=== PATIENT | female | born 1940 | race Caucasian/White ===

== ENCOUNTER 2018-01-01 12:16 | Inpatient (IN) ==
[2018-01-01 13:56] LABS: Baso % (Auto) 0.2 % (0.0-2.0); Hematocrit 39.9 % (35.0-46.0); Hemoglobin 12.9 gm/dL (11.6-15.3); Lymph # (Auto) 1.5 th/mm3 (1.0-4.8); Lymph % (Auto) 7.5 % (9.0-44.0); Mean Corpuscular HGB Conc 32.4 % (32.0-36.0); Mean Corpuscular Hemoglobin 29.4 pg (27.0-34.0); Mean Corpuscular Volume 90.8 fL (80.0-100.0); Mean Platelet Volume 8.5 fL (7.0-11.0); Mono # (Auto) 1.5 th/mm3 (0.0-0.9); Mono % (Auto) 7.7 % (0.0-8.0); Neut # (Auto) 16.4 th/mm3 (1.8-7.7); Neut % (Auto) 84.6 % (16.0-70.0); Platelet Count 237 th/mm3 (150-450); Red Cell Distribution Width 14.4 % (11.6-17.2); White Blood Count 19.4 th/mm3 (4.0-11.0)
[2018-01-01 14:03] LABS: Activated Partial Thrombo Time 28.9 sec (24.3-30.1); INR 1.1 Ratio; Prothrombin Time 10.7 sec (9.8-11.6)
[2018-01-01 14:20] LABS: Anion Gap 5 meq/L (5-15); Blood Urea Nitrogen 18 mg/dL (7-18); Calcium 8.6 mg/dL (8.5-10.1); Carbon Dioxide 27.7 meq/L (21.0-32.0); Chloride 104 meq/L (98-107); Glomerular Filtration Rate 22 mL/min (>89); Glucose,Random 98 mg/dL (74-106); Potassium 4.4 meq/L (3.5-5.1); Sodium 137 meq/L (136-145)
--- NOTE | 2018-01-01 14:22 | XR ---
EXAM DATE: 01/01/2018 1:37 PM EDT AGE/SEX: 77 years / Female INDICATIONS: . Chest pain today. CLINICAL DATA: This is the patient's initial encounter. Patient reports that signs and symptoms have been present for 2 days and indicates a pain score of 7/10. MEDICAL/SURGICAL HISTORY: Hypertension. Congestive heart failure. None. COMPARISON: No prior exams available for comparison. FINDINGS: There is some mild nonspecific infiltrates in both lung bases. The upper lung leo are grossly rock r. No definite pleural effusions or pulmonary edema. The heart size is within normal limits. The bony structures are grossly intact. There are no prior studies for comparison. CONCLUSION: Mild nonspecific infiltrates in both lung bases, right greater than left. Bibasilar pneumonia would b e a consideration. Electronically signed by: Liam Washburn MD 01/01/2018 2:20 PM EDT
[2018-01-01 14:35] LABS: Lymphocytes 8 % (9-44); Monocytes 8 % (0-8); Platelet Estimate Normal (Normal); Platelet Morphology Normal (Normal)
[2018-01-01 14:36] LABS: Toxic Vacuolation Present
--- NOTE | 2018-01-01 14:46 | ED ---
HPI General Chief Complaint: Chest Pain Stated Complaint: Chest Pain Time Seen by Provider: 01/01/18 13:10 Source: patient Mode of arrival: EMS Limitations: no limitations History of Present Illness HPI narrative: 77-year-old female with COPD, hypercholesterolemia, hypertension presented with complaint of left-sided chest pain since yesterday. Describes a pleuritic 8 out of 10. She still smokes. Has COPD. MD complaint: chest pain Complete Quality Measures for STEMI Alert Patients STEMI Alert: No Duration: intermittent Quality: tightness Pain radiation: none Relieving factors: nothing Exacerbating factors: inspiration Context: recent illness Associated symptoms: cough (Productive) Treatments prior to arrival chest pain: aspirin Related Data On Oral Contraceptives: No Home Medications Medication Instructions Recorded Confirmed albuterol sulfate [Ventolin HFA] 2 puff INHALATION Q6H PRN 01/01/18 01/01/18 duloxetine 30 mg PO DAILY 01/01/18 01/01/18 hydralazine 25 mg PO TID 01/01/18 01/01/18 hydrocodone-acetaminophen [[place]] 1 tab PO Q6H PRN 01/01/18 01/01/18 meloxicam 7.5 mg PO DAILY 01/01/18 01/01/18 oxybutynin chloride 2.5 mg PO BID 01/01/18 01/01/18 quetiapine 25 mg PO DAILY 01/01/18 01/01/18 temazepam 15 mg PO HS 01/01/18 01/01/18 Previous Rx's Medication Instructions Recorded budesonide-formoterol [Symbicort] 2 puff INHALATION Q12H 30 Days g 01/03/18 levofloxacin 750 mg PO EVERY OTHER DAY #3 tab 01/03/18 prednisone 20 mg PO BID #8 tab 01/03/18 Allergies Allergy/AdvReac Type Severity Reaction Status Date / Time Iodinated Contrast- Oral and Allergy Agitation Verified 01/01/18 13:19 IV Dye [Contrast] Review of Systems Constitutional Denies fever(s) Eyes Denies change in vision ENT Denies headache(s) and Denies nasal congestion Cardiovascular Reports chest pain, Reports chest pain at rest, Denies chest pain with activity , Denies syncope, Denies pedal edema and Denies palpitations Respiratory Reports chest congestion, Reports cough, Reports excessive phlegm production and Reports dyspnea Gastrointestinal Denies abdominal pain Genitourinary Denies difficulty voiding Musculoskeletal Denies myalgias Integumentary/Breasts Denies rash Neurologic Denies headache(s) Psychiatric Denies depression Endocrine Denies polyuria Hematologic/Lymphatic Denies easy bruising PMFSH Medical History Medical History COPD (chronic obstructive pulmonary disease) (Acute) High cholesterol (Acute) History of hysterectomy (Acute) Hypertension (Acute) Surgical History Surgical History History of laminectomy (Acute) Social History Social History Substance History: No History of Abuse Second Hand Smoke Exposure: No Smoking Status: Current every day smoker Tobacco Type: Cigarettes Packs Per Day: 0.5 Cigarettes Per Day: 10.0 How Often Do You Have a Drink Containing Alcohol: Never Recent Travel in [facility] within the Last 8 Weeks: No Recent Out of Country Travel within the Last 8 Weeks: No Immunization History Tetanus Immunization: Unsure Exam HENNH Head: normocephalic and atraumatic Nose: no nasal discharge and no epistaxis Mouth: moist mucous membranes Eyes Sclera: normal sclerae Pupils: PERRL Neck Neck: trachea midline and no JVD Resp Effort & Inspection: normal respiratory effort and no use of accessory muscles Auscultation: clear to auscultation bilaterally Other: Diminished sounds bilaterally. No crackles. No wheezing. Cardio Rate: regular rate Rhythm: regular rhythm Heart Sounds: no murmurs GI Inspection: non-distended Palpation: soft, no hepatosplenomegaly and nontender Skin General: dry skin (warm) Neuro General: alert and awake Cranial Nerves: other Speech: speech normal Motor: no movement abnormalities noted Extrem General: normal to inspection, no clubbing, no cyanosis and no edema Psych Mood: congruent mood Affect: normal affect Judgment: judgment good Course Reevaluation(s) Reevaluation #1: Patient resting comfortably in no distress. Antibiotics started. Cultures obtained. Hemodynamically stable. Time: 15:00 Initial Documented Vital Signs Temperature 98.4 F 01/01/18 12:31 Pulse Rate 95 H 01/01/18 12:31 Respiratory Rate 20 01/01/18 12:31 Blood Pressure 173/74 H 01/01/18 12:31 Pulse Oximetry 97 01/01/18 12:31 Last Documented Vital Signs Temperature 98.4 F 01/03/18 12:00 Pulse Rate 83 01/03/18 14:08 Respiratory Rate 12 01/03/18 14:08 Blood Pressure 141/62 H 01/03/18 12:00 Pulse Oximetry 85 L 01/03/18 14:08 Medical Decision Making MDM Narrative Medical decision making narrative: Patient with COPD exacerbation likely secondary to pneumonia. Lactic acid elevated fall meeting sepsis criteria. She was started on ceftriaxone and azithromycin. Hemodynamically stable. Lab Data Lab results reviewed: Yes I reviewed the patient's lab results. Result diagrams: 01/02/18 05:18 01/02/18 05:18 Lab Results 01/01/18 01/01/18 01/01/18 Range/Units 13:30 13:30 13:30 WBC 19.4 H (4.0-11.0) th/mm3 RBC 4.40 (4.00-5.30) mil/mm3 Hgb 12.9 (11.6-15.3) gm/dL Hct 39.9 (35.0-46.0) % MCV 90.8 (80.0-100.0) fL MCH 29.4 (27.0-34.0) pg MCHC 32.4 (32.0-36.0) % RDW 14.4 (11.6-17.2) % Plt Count 237 (150-450) th/mm3 MPV 8.5 (7.0-11.0) fL Prelim Diff (Auto) Slide review pending Neut % (Auto) 84.6 H (16.0-70.0) % Lymph % (Auto) 7.5 L (9.0-44.0) % [place] % (Auto) 7.7 (0.0-8.0) % Eos % (Auto) 0.0 (0.0-4.0) % Baso % (Auto) 0.2 (0.0-2.0) % Neut # (Auto) 16.4 H (1.8-7.7) th/mm3 Lymph # (Auto) 1.5 (1.0-4.8) th/mm3 [place] # (Auto) 1.5 H (0.0-0.9) th/mm3 Eos # (Auto) 0.0 (0.0-0.4) th/mm3 Baso # (Auto) 0.0 (0.0-0.2) th/mm3 WBC Differential Manual diff final Seg Neuts % (Manual) 74 H (16-70) % Band Neuts % (Manual) 10 H (0-6) % Lymphocytes % (Manual) 8 L (9-44) % Monocytes % (Manual) 8 (0-8) % Abs Neuts (Manual) 16.3 H (1.8-7.7) th/mm3 Differential Comment . Toxic Vacuolation Present H (None) Platelet Estimate Normal (Normal) Platelet Morphology Normal (Normal) PT 10.7 (9.8-11.6) sec INR 1.1 Ratio APTT 28.9 (24.3-30.1) sec Sodium 137 (136-145) meq/L Potassium 4.4 (3.5-5.1) meq/L Chloride 104 (98-107) meq/L Carbon Dioxide 27.7 (21.0-32.0) meq/L Anion Gap 5 (5-15) meq/L BUN 18 (7-18) mg/dL Creatinine 2.13 H (0.50-1.00) mg/dL Estimated GFR 22 L (>89) mL/min Random Glucose 98 (74-106) mg/dL Lactic Acid (0.4-2.0) mmol/L Calcium 8.6 (8.5-10.1) mg/dL Troponin I Less than 0.02 L (0.02-0.05) ng/mL 01/01/18 01/01/18 01/02/18 Range/Units 15:35 23:22 05:18 WBC 10.5 (4.0-11.0) th/mm3 RBC 3.96 L (4.00-5.30) mil/mm3 Hgb 11.8 (11.6-15.3) gm/dL Hct 36.1 (35.0-46.0) % MCV 91.4 (80.0-100.0) fL MCH 29.8 (27.0-34.0) pg MCHC 32.6 (32.0-36.0) % RDW 14.7 (11.6-17.2) % Plt Count 188 (150-450) th/mm3 MPV 8.3 (7.0-11.0) fL Prelim Diff (Auto) Neut % (Auto) 74.0 H (16.0-70.0) % Lymph % (Auto) 15.7 (9.0-44.0) % [place] % (Auto) 9.1 H (0.0-8.0) % Eos % (Auto) 0.9 (0.0-4.0) % Baso % (Auto) 0.3 (0.0-2.0) % Neut # (Auto) 7.8 H (1.8-7.7) th/mm3 Lymph # (Auto) 1.6 (1.0-4.8) th/mm3 [place] # (Auto) 1.0 H (0.0-0.9) th/mm3 Eos # (Auto) 0.1 (0.0-0.4) th/mm3 Baso # (Auto) 0.0 (0.0-0.2) th/mm3 WBC Differential . Seg Neuts % (Manual) (16-70) % Band Neuts % (Manual) (0-6) % Lymphocytes % (Manual) (9-44) % Monocytes % (Manual) (0-8) % Abs Neuts (Manual) (1.8-7.7) th/mm3 Differential Comment Auto diff final Toxic Vacuolation (None) Platelet Estimate (Normal) Platelet Morphology (Normal) PT (9.8-11.6) sec INR Ratio APTT (24.3-30.1) sec Sodium (136-145) meq/L Potassium (3.5-5.1) meq/L Chloride (98-107) meq/L Carbon Dioxide (21.0-32.0) meq/L Anion Gap (5-15) meq/L BUN (7-18) mg/dL Creatinine (0.50-1.00) mg/dL Estimated GFR (>89) mL/min Random Glucose (74-106) mg/dL Lactic Acid 0.9 (0.4-2.0) mmol/L Calcium (8.5-10.1) mg/dL Troponin I Less than 0.02 L (0.02-0.05) ng/mL 01/02/18 Range/Units 05:18 WBC (4.0-11.0) th/mm3 RBC (4.00-5.30) mil/mm3 Hgb (11.6-15.3) gm/dL Hct (35.0-46.0) % MCV (80.0-100.0) fL MCH (27.0-34.0) pg MCHC (32.0-36.0) % RDW (11.6-17.2) % Plt Count (150-450) th/mm3 MPV (7.0-11.0) fL Prelim Diff (Auto) Neut % (Auto) (16.0-70.0) % Lymph % (Auto) (9.0-44.0) % [place] % (Auto) (0.0-8.0) % Eos % (Auto) (0.0-4.0) % Baso % (Auto) (0.0-2.0) % Neut # (Auto) (1.8-7.7) th/mm3 Lymph # (Auto) (1.0-4.8) th/mm3 [place] # (Auto) (0.0-0.9) th/mm3 Eos # (Auto) (0.0-0.4) th/mm3 Baso # (Auto) (0.0-0.2) th/mm3 WBC Differential Seg Neuts % (Manual) (16-70) % Band Neuts % (Manual) (0-6) % Lymphocytes % (Manual) (9-44) % Monocytes % (Manual) (0-8) % Abs Neuts (Manual) (1.8-7.7) th/mm3 Differential Comment Toxic Vacuolation (None) Platelet Estimate (Normal) Platelet Morphology (Normal) PT (9.8-11.6) sec INR Ratio APTT (24.3-30.1) sec Sodium 141 (136-145) meq/L Potassium 4.5 (3.5-5.1) meq/L Chloride 108 H (98-107) meq/L Carbon Dioxide 23.2 (21.0-32.0) meq/L Anion Gap 10 (5-15) meq/L BUN 21 H (7-18) mg/dL Creatinine 2.05 H (0.50-1.00) mg/dL Estimated GFR 23 L (>89) mL/min Random Glucose 72 L (74-106) mg/dL Lactic Acid (0.4-2.0) mmol/L Calcium 8.1 L (8.5-10.1) mg/dL Troponin I (0.02-0.05) ng/mL Imaging Data Radiologist's impression: Chest X-Ray 01/01/18 13:21 CONCLUSION: Mild nonspecific infiltrates in both lung bases, right greater than left. Bibasilar pneumonia would be a consideration. ECG Data Attestation: I personally reviewed and interpreted this ECG as follows: Prior ECG tracings: available for review Interpretation: EKG obtained at 12:31 PM revealed sinus rhythm 89 bpm MS 122 ms normal QTC nonspecific ST-T wave abnormalities. Normal axis. No signs of acute ischemia. No STEMI Discharge Plan Discharge Disposition Patient Disposition: 01 Discharge Home Discharge Condition Condition: Good Discharge Order Discharge Orders: Discharge Order (Routine); Ordered 01/03/18 Ordered By: Bc Ervin Discharge Details Anticipated Discharge Date: 01/03/18 Diagnosis: Bilateral pneumonia, COPD exacerbation Physicians Team ED Provider: David Olvera Primary Care Provider: UNKNOWN, Attending Provider: Bc Ervin Discharge Interventions Interventions: ED Discharge Assessment Last Done: 01/01/18 19:06 Status ED Status: Left Department Discharge Information Discharge Date/Time: 01/01/18 19:06
[2018-01-01] MEDS ORDERED: Azithromycin Inj 500 MG in Sodium Chlor 0.9% Inj 250 ML IV.SIG ONE (14:59)
[2018-01-01] MEDS ORDERED: Bisacodyl 10 MG Supp RECTAL PRN (15:42)
[2018-01-01] MEDS ORDERED: Naloxone Inj 0.4 MG/ML Vial IV.PUSH PRN (15:57)
[2018-01-01] MEDS ORDERED: Acetaminophen 325 MG Tablet PO PRN (15:57)
[2018-01-01] MEDS ORDERED: guaiFENesin/Dextromethorphan 200 MG/20 MG 10 ML UDC PO PRN (15:58)
--- NOTE | 2018-01-01 16:01 | P.HPIM ---
History of Present Illness Primary Care Physician: UNKNOWN Chief Complaint: Chills and fever and chest pain History of Present Illness: 77-year-old white female with a history of hypertension, hyperlipidemia presents to the emergency room with a 5 day history of worsening symptoms of shortness of breath with physical exertion, left-sided pleuritic chest pain along with chills of fever and was brought to the emergency room by her sister. She describes a productive cough with yellowish phlegm. She also continues to smoke half a pack of cigarettes on a daily basis. She describes the pain as a 7 out of 10 in pain intensity and describes as a sharp stabbing pain left- sided with no radiation. She also has had poor appetite but no symptoms of nausea or vomiting. She denies any associated diarrhea. She denies any associated abdominal pain. She states her baseline is walking with a cane or a walker but her sister states that she has been less active during the past few days due to the symptoms. Inpatient Certification: I certify that the inpatient services were ordered in accordance with Medicare regulations governing the order. This includes certification that hospital inpatient services are reasonable and necessary and in the case of services not specified as inpatient-only under 42 CFR 419.22(n), that they are appropriately provided as inpatient services in accordance to with the 2-midnight benchmark under 43 CFR 412.3(e) Estimated Total Length of Stay (Days): 3 Plans for Post Hospital Care: Home health Review of Systems All other systems reviewed negative except as stated [facility] - History History Provided By: Patient - Medical History Medical History: Medical History (Last Updated 01/01/18 @ 15:51 by Elodia Weinstein MD) COPD (chronic obstructive pulmonary disease) High cholesterol History of hysterectomy Hypertension - Surgical History Surgical History: Surgical History (Last Reviewed 01/01/18 @ 15:50 by Elodia Weinstein MD) History of laminectomy - Tobacco History Second Hand Smoke Exposure: No Tobacco Use In Past 30 Days: Yes Smoking Status: Current every day smoker Tobacco Type: Cigarettes Packs Per Day: 0.5 - Alcohol History How Often Do You Have a Drink Containing Alcohol: Never - Substance Use History Substance History: No History of Abuse - Travel History Recent Travel in the [place] Within the Last 8 Weeks: No Recent Travel Out of the Country Within the Last 8 Weeks: No - Immunization History Tetanus Immunization: Unsure Medications and Allergies Active Medications: Active Medications Al Hydroxide/Mg Hydroxide (Milk Of Magnesia Liq) 30 ml PO Q12H PRN PRN Reason: Mild Constipation Bisacodyl (Dulcolax Supp) 10 mg RECTAL DAILY PRN PRN Reason: SEVERE CONSITIPATION Heparin Sodium (Porcine) (Heparin Inj) 5,000 units SQ Q12H CHANTEL Azithromycin 500 mg/ Sodium (Chloride) 250 mls @ 250 mls/hr IV.SIG ONCE ONE Stop: 01/01/18 15:58 Ceftriaxone Sodium 2,000 mg/ (Sodium Chloride) 100 mls @ 200 mls/hr IV.SIG Q24H CHANTEL Azithromycin 500 mg/ Sodium (Chloride) 250 mls @ 250 mls/hr IV.SIG Q24H CHANTEL Lactulose (Lactulose Liq) 30 ml PO DAILY PRN PRN Reason: SEVERE CONSITIPATION Ondansetron HCl (Zofran Inj) 4 mg IV.PUSH Q6H PRN PRN Reason: NAUSEA OR VOMITING Sennosides (Senokot) 17.2 mg PO Q12H PRN PRN Reason: Moderate Constipation Sodium Chloride (Ns Flush) 2 ml IV.FLUSH UNSCH PRN PRN Reason: FLUSH AFTER USING IV ACCESS Sodium Chloride (Ns Flush) 2 ml IV.FLUSH UNSCH PRN PRN Reason: FLUSH AFTER USING IV ACCESS Allergies Allergy/AdvReac Type Severity Reaction Status Date / Time Iodinated Contrast- Oral and Allergy Agitation Verified 01/01/18 13:19 IV Dye [Contrast] Home Medications Medication Instructions Recorded Confirmed Type albuterol sulfate [Ventolin HFA] 2 puff INHALATION Q6H PRN 01/01/18 01/01/18 History duloxetine 30 mg PO DAILY 01/01/18 01/01/18 History hydralazine 25 mg PO TID 01/01/18 01/01/18 History hydrocodone-acetaminophen [[place]] 1 tab PO Q6H PRN 01/01/18 01/01/18 History meloxicam 7.5 mg PO DAILY 01/01/18 01/01/18 History oxybutynin chloride 2.5 mg PO BID 01/01/18 01/01/18 History quetiapine 25 mg PO DAILY 01/01/18 01/01/18 History temazepam 15 mg PO HS 07/18/18 07/18/18 History Exam Vital signs: Vital Signs 01/01/18 12:31 Temperature 98.4 F Pulse Rate 95 H Respiratory Rate 20 Blood Pressure 173/74 H Pulse Oximetry 97 Intake & Output 12/31/17 01/01/18 01/01/18 18:59 06:59 18:59 Weight 52.163 kg Narrative: GENERAL: Thin, well-developed white female laying in bed in no acute respiratory distress however the ill-appearing SKIN: Warm and dry. HEAD: Atraumatic. Normocephalic. EYES: Pupils equal and round. No scleral icterus. No injection or drainage. ENT: No nasal bleeding or discharge. Mucous membranes pink and moist. Oropharynx showed no erythema NECK: Trachea midline. No JVD. CARDIOVASCULAR: Regular rate and rhythm. RESPIRATORY: Diminished breath sounds in the left basilar area GASTROINTESTINAL: Abdomen soft, non-tender, nondistended. Hepatic and splenic margins not palpable. Normoactive bowel sounds MUSCULOSKELETAL: Extremities without clubbing, cyanosis, or edema. No obvious deformities. NEUROLOGICAL: Awake and alert to person place and time. No obvious cranial nerve deficits. Motor grossly within normal limits. Five out of 5 muscle strength in the arms and legs. Normal speech. PSYCHIATRIC: Appropriate mood and affect; insight and judgment normal. Results - Labs CBC & Chem 7: 01/02/18 05:18 01/02/18 05:18 Labs: Short CBC 01/01/18 Range/Units 13:30 WBC 19.4 H (4.0-11.0) th/mm3 Hgb 12.9 (11.6-15.3) gm/dL Hct 39.9 (35.0-46.0) % Plt Count 237 (150-450) th/mm3 BMP 01/01/18 13:30 Sodium 137 Potassium 4.4 Chloride 104 Carbon Dioxide 27.7 BUN 18 Creatinine 2.13 H Calcium 8.6 Cardiac Enzymes 01/01/18 Range/Units 13:30 Troponin I Less than 0.02 L (0.02-0.05) ng/mL - Imaging Impressions Chest X-Ray 01/01/18 13:21 CONCLUSION: Mild nonspecific infiltrates in both lung bases, right greater than left. Bibasilar pneumonia would be a consideration. Caprini VTE Risk Assessment Caprini VTE Risk Assessment: Moderate/High Risk (score >= 2) Caprini Risk Assessment Model: Point Value = 1 Point Value = 2 Point Value = 3 Point Value = 5 Age 41-60 Minor surgery BMI > 25 kg/m2 Swollen legs Varicose veins or History of unexplained or recurrent spontaneous Oral contraceptives or hormone replacement Sepsis (< 1 month) Serious lung disease, including pneumonia (< 1 month) Abnormal pulmonary function Acute myocardial infarction Congestive heart failure (< 1 month) History of inflammatory bowel disease Medical patient at bed rest Age 61-74 Arthroscopic surgery Major open surgery (> 45 min) Laparoscopic surgery (> 45 min) Malignancy Confined to bed (> 72 hours) Immobilizing plaster cast Central venous access Age >= 75 History of VTE Family history of VTE Factor V Leiden Prothrombin [id number] Lupus anticoagulant Anticardiolipin antibodies Elevated serum homocysteine Heparin-induced thrombocytopenia Other congenital or acquired thrombophilia Stroke (< 1 month) Elective arthroplasty Hip, pelvis, or leg fracture Acute spinal cord injury (< 1 month) Prophylaxis Regimen: Total Risk Factor Score Risk Level Prophylaxis Regimen 0-1 Low Early ambulation 2 Moderate Order ONE of the following: *Sequential Compression Device (SCD) *Heparin 5000 units SQ BID 3-4 Higher Order ONE of the following medications: *Heparin 5000 units SQ TID *Enoxaparin/Lovenox 40 mg SQ daily (WT < 150 kg, CrCl > 30 mL/min) *Enoxaparin/Lovenox 30 mg SQ daily (WT < 150 kg, CrCl > 10-29 mL/min) *Enoxaparin/Lovenox 30 mg SQ BID (WT < 150 kg, CrCl > 30 mL/min) AND/OR *Sequential Compression Device (SCD) 5 or more Highest Order ONE of the following medications: *Heparin 5000 units SQ TID (Preferred with Epidurals) *Enoxaparin/Lovenox 40 mg SQ daily (WT < 150 kg, CrCl > 30 mL/min) *Enoxaparin/Lovenox 30 mg SQ daily (WT < 150 kg, CrCl > 10-29 mL/min) *Enoxaparin/Lovenox 30 mg SQ BID (WT < 150 kg, CrCl > 30 mL/min) AND *Sequential Compression Device (SCD) Assessment and Plan - Plan 77-year-old white female with a history COPD, hypertension, hyperlipidemia current smoker with 1. Sepsis on admission due to leukocytosis and tachycardia with source of community-acquired pneumoniacontinue with IV ceftriaxone, azithromycin, oxygen for support as needed. Follow-up with lactic acid levels and blood cultures. 2. COPD with mild exacerbationcontinue with DuoNeb treatments. Oxygen support as needed. 3. Hypertensionresume home hydralazine 4. Tobacco usecessation counseling provided. 5. Acute kidney injury possibly superimposed on chronic kidney disease stage IIIwill continue monitor with IV fluid hydration and supportive care 6. DVT prophylaxis heparin subcu
[2018-01-01] MEDS: Heparin - SQ 10,000 UNITS/ML Vial SQ SCH (16:21)
[2018-01-01] MEDS: Sod Chloride 0.9% Inj 1,000 ML IV.CONT SCH (17:12)
[2018-01-02 06:55] LABS: Baso % (Auto) 0.3 % (0.0-2.0); Eos # (Auto) 0.1 th/mm3 (0.0-0.4); Eos % (Auto) 0.9 % (0.0-4.0); Hematocrit 36.1 % (35.0-46.0); Hemoglobin 11.8 gm/dL (11.6-15.3); Lymph # (Auto) 1.6 th/mm3 (1.0-4.8); Lymph % (Auto) 15.7 % (9.0-44.0); Mean Corpuscular HGB Conc 32.6 % (32.0-36.0); Mean Corpuscular Hemoglobin 29.8 pg (27.0-34.0); Mean Corpuscular Volume 91.4 fL (80.0-100.0); Mean Platelet Volume 8.3 fL (7.0-11.0); Mono % (Auto) 9.1 % (0.0-8.0); Neut # (Auto) 7.8 th/mm3 (1.8-7.7); Platelet Count 188 th/mm3 (150-450); Red Blood Count 3.96 mil/mm3 (4.00-5.30); Red Cell Distribution Width 14.7 % (11.6-17.2); White Blood Count 10.5 th/mm3 (4.0-11.0)
[2018-01-02 07:05] LABS: Calcium 8.1 mg/dL (8.5-10.1); Carbon Dioxide 23.2 meq/L (21.0-32.0); Potassium 4.5 meq/L (3.5-5.1)
[2018-01-02] MEDS: Heparin - SQ 10,000 UNITS/ML Vial SQ SCH ×2 (07:50→17:24)
[2018-01-02] MEDS: Sod Chloride 0.9% Inj 1,000 ML IV.CONT SCH ×2 (07:51→20:52)
[2018-01-02] MEDS ORDERED: predniSONE 20 MG Tablet PO ONE (10:42)
--- NOTE | 2018-01-02 10:48 | P.PN ---
Subjective Interval history: Follow-up for pneumonia, COPD exacerbation. Patient is currently doing well. On room air. No fever or chills. Physical Exam Vital signs: Vital Signs 01/01/18 12:31 01/01/18 15:48 01/01/18 18:20 Temperature 98.4 F Pulse Rate 95 H 80 Respiratory Rate 20 18 18 Blood Pressure 173/74 H 141/63 H Pulse Oximetry 97 01/01/18 19:52 01/01/18 19:53 01/01/18 20:00 Temperature 99.6 F Pulse Rate 89 92 H Respiratory Rate 18 17 Blood Pressure 108/55 L Pulse Oximetry 98 98 01/02/18 00:00 01/02/18 04:00 01/02/18 08:00 Temperature 99.1 F 98.4 F 99.2 F Pulse Rate 75 82 83 Respiratory Rate 17 17 20 Blood Pressure 92/55 L 104/51 L 101/53 L Pulse Oximetry 98 98 98 01/02/18 08:58 01/02/18 09:02 01/02/18 10:06 Temperature Pulse Rate 110 H 86 Respiratory Rate 15 Blood Pressure Pulse Oximetry 96 Intake & Output 01/01/18 01/02/18 01/02/18 18:59 06:59 18:59 Output Total Balance - Weight 52.163 kg 53.1 kg Output: Urine Other: # Voids 1 Narrative: GENERAL: Alert, NAD. SKIN: Warm and dry. HEAD: Normocephalic. EYES: No scleral icterus. No injection or drainage. NECK: Supple, trachea midline. No JVD or lymphadenopathy. CARDIOVASCULAR: Regular rate and rhythm without murmurs, gallops, or rubs. RESPIRATORY: Moderate air entry, no appreciable wheezing. Mild crackles on the left lower lung field. No accessory muscle use. GASTROINTESTINAL: Abdomen soft, non-tender, nondistended. MUSCULOSKELETAL: No cyanosis, or edema. BACK: Nontender without obvious deformity. No CVA tenderness. Results - Labs CBC & Chem 7: 01/02/18 05:18 01/02/18 05:18 Laboratory Results - last 24 hr 01/01/18 01/01/18 01/01/18 13:30 13:30 13:30 WBC 19.4 H RBC 4.40 Hgb 12.9 Hct 39.9 MCV 90.8 MCH 29.4 MCHC 32.4 RDW 14.4 Plt Count 237 MPV 8.5 Prelim Diff (Auto) Slide review pending Neut % (Auto) 84.6 H Lymph % (Auto) 7.5 L [place] % (Auto) 7.7 Eos % (Auto) 0.0 Baso % (Auto) 0.2 Neut # (Auto) 16.4 H Lymph # (Auto) 1.5 [place] # (Auto) 1.5 H Eos # (Auto) 0.0 Baso # (Auto) 0.0 WBC Differential Manual diff final Seg Neuts % (Manual) 74 H Band Neuts % (Manual) 10 H Lymphocytes % (Manual) 8 L Monocytes % (Manual) 8 Abs Neuts (Manual) 16.3 H Differential Comment . Toxic Vacuolation Present H Platelet Estimate Normal Platelet Morphology Normal PT 10.7 INR 1.1 APTT 28.9 Sodium 137 Potassium 4.4 Chloride 104 Carbon Dioxide 27.7 Anion Gap 5 BUN 18 Creatinine 2.13 H Estimated GFR 22 L Random Glucose 98 Lactic Acid Calcium 8.6 Troponin I Less than 0.02 L 01/01/18 01/01/18 01/02/18 15:35 23:22 05:18 WBC 10.5 RBC 3.96 L Hgb 11.8 Hct 36.1 MCV 91.4 MCH 29.8 MCHC 32.6 RDW 14.7 Plt Count 188 MPV 8.3 Prelim Diff (Auto) Neut % (Auto) 74.0 H Lymph % (Auto) 15.7 [place] % (Auto) 9.1 H Eos % (Auto) 0.9 Baso % (Auto) 0.3 Neut # (Auto) 7.8 H Lymph # (Auto) 1.6 [place] # (Auto) 1.0 H Eos # (Auto) 0.1 Baso # (Auto) 0.0 WBC Differential . Seg Neuts % (Manual) Band Neuts % (Manual) Lymphocytes % (Manual) Monocytes % (Manual) Abs Neuts (Manual) Differential Comment Auto diff final Toxic Vacuolation Platelet Estimate Platelet Morphology PT INR APTT Sodium Potassium Chloride Carbon Dioxide Anion Gap BUN Creatinine Estimated GFR Random Glucose Lactic Acid 0.9 Calcium Troponin I Less than 0.02 L 01/02/18 05:18 WBC RBC Hgb Hct MCV MCH MCHC RDW Plt Count MPV Prelim Diff (Auto) Neut % (Auto) Lymph % (Auto) [place] % (Auto) Eos % (Auto) Baso % (Auto) Neut # (Auto) Lymph # (Auto) [place] # (Auto) Eos # (Auto) Baso # (Auto) WBC Differential Seg Neuts % (Manual) Band Neuts % (Manual) Lymphocytes % (Manual) Monocytes % (Manual) Abs Neuts (Manual) Differential Comment Toxic Vacuolation Platelet Estimate Platelet Morphology PT INR APTT Sodium 141 Potassium 4.5 Chloride 108 H Carbon Dioxide 23.2 Anion Gap 10 BUN 21 H Creatinine 2.05 H Estimated GFR 23 L Random Glucose 72 L Lactic Acid Calcium 8.1 L Troponin I - Imaging Impressions Chest X-Ray 01/01/18 13:21 CONCLUSION: Mild nonspecific infiltrates in both lung bases, right greater than left. Bibasilar pneumonia would be a consideration. Assessment and Plan - Assessment (1) Bilateral pneumonia Code(s): J18.9 - Pneumonia, unspecified organism Status: Acute (2) COPD exacerbation Code(s): J44.1 - Chronic obstructive pulmonary disease with (acute) exacerbation Status: Acute - Plan 77-year-old white female with a history COPD, hypertension, hyperlipidemia current smoker with Sepsis on admission due to leukocytosis and tachycardia with source of community -acquired pneumonia Community-acquired pneumonia COPD exacerbation continue with IV ceftriaxone, azithromycin, oxygen for support as needed. -Continue albuterol, DuoNeb. -We will start prednisone 20 mg twice daily for 5 days. Hypertensionresume home hydralazine 25 mg 3 times daily. Tobacco usecessation counseling provided. Acute kidney injury possibly superimposed on chronic kidney disease stage III will continue monitor with IV fluid hydration and supportive care Full code. Heparin subcutaneous.
[2018-01-02] MEDS: hydrALAZINE 25 MG Tablet PO SCH ×4 (11:36→17:31)
[2018-01-02] MEDS ORDERED: levoFLOXacin 750 MG Tablet PO SCH (17:00)
[2018-01-02] MEDS ORDERED: Azithromycin Inj 500 MG in Sodium Chlor 0.9% Inj 250 ML IV.SIG SCH (17:00)
--- NOTE | 2018-01-02 18:39 | ECG ---
Date Performed: 01/01/2018 Time Performed: 12:31:12 PTAGE: 77 years EKG: Sinus rhythm MODERATE VOLTAGE CRITERIA FOR LVH, CONSIDER NORMAL VARIANT NONSPECIFIC ST & T-WAVE ABNORMALITY BRITNEY MACARIO ECG NO PREVIOUS TRACING DOCTOR: Jose Mccarty Interpretating Date/Time 01/02/2018 18:37:34
[2018-01-02] MEDS: predniSONE 20 MG Tablet PO SCH (21:49)
[2018-01-03] MEDS: Heparin - SQ 10,000 UNITS/ML Vial SQ SCH ×2 (05:11→15:45)
[2018-01-03] MEDS: predniSONE 20 MG Tablet PO SCH (08:48)
[2018-01-03] MEDS: hydrALAZINE 25 MG Tablet PO SCH ×2 (08:49→15:44)
[2018-01-03] MEDS: Sod Chloride 0.9% Inj 1,000 ML IV.CONT SCH (08:49)
--- NOTE | 2018-01-03 10:08 | P.DCO ---
- Physical Therapy Order: Evaluate and treat, Improve ambulation, Strength and gait training - Home Health Nursing Order: Medical education, Signs/symptoms of disease process, Oxygen administration education, Medication education-adverse effect - Certification I have seen patient Lori Morillo on 01/03/18. My clinical findings support the need for the requested home health care services because: Limited mobility due to disease progression, Patient has SOB, Deconditioned with increased weakness, Need for psychosocial assistance, High risk of falls, Infection with risk of complications I certify that my clinical findings support that this patient is homebound because: Hx COPD - exertion dyspnea/weakness, Unsteady gait/balance, Non-ambulatory: confined to bed or chair, Unable to use public transportation
[2018-01-03] MEDS ORDERED: QUEtiapine 25 MG Tablet PO SCH (11:00)
[2018-01-03 13:48] VITALS: BP 141/62; TEMP 98.4
[2018-01-03 14:08] VITALS: PULSE 83; RESP 12
[2018-01-03 14:11] VITALS: O2SAT 85
--- NOTE | 2018-01-04 15:21 | P.DS ---
Date of admission: 01/01/18 15:29 Primary care physician: UNKNOWN Brief History from admission: 77-year-old white female with a history of hypertension, hyperlipidemia presents to the emergency room with a 5 day history of worsening symptoms of shortness of breath with physical exertion, left-sided pleuritic chest pain along with chills of fever and was brought to the emergency room by her sister. She describes a productive cough with yellowish phlegm. She also continues to smoke half a pack of cigarettes on a daily basis. She describes the pain as a 7 out of 10 in pain intensity and describes as a sharp stabbing pain left- sided with no radiation. She also has had poor appetite but no symptoms of nausea or vomiting. She denies any associated diarrhea. She denies any associated abdominal pain. She states her baseline is walking with a cane or a walker but her sister states that she has been less active during the past few days due to the symptoms. DS: Diagnosis - Discharge Diagnosis (1) Bilateral pneumonia Status: Acute (2) COPD exacerbation Status: Acute DS: Medications - Discharge Medications Prescriptions: budesonide-formoterol [Symbicort] 2 puff INHALATION Q12H 30 Days g levofloxacin 750 mg PO EVERY OTHER DAY #3 tab prednisone 20 mg PO BID #8 tab DS: Summary Hospital Course: 77-year-old white female with a history COPD, hypertension, hyperlipidemia current smoker with Sepsis on admission due to leukocytosis and tachycardia with source of community -acquired pneumonia Community-acquired pneumonia COPD exacerbation Initially received Ceftriaxone and Azithromycin and later switched to Levaquin. -Continue albuterol, DuoNeb. -prednisone 20 mg twice daily for 5 days. Hypertensionresume home hydralazine 25 mg 3 times daily. Tobacco usecessation counseling provided. Acute kidney injury possibly superimposed on chronic kidney disease stage III No acute concerns. Full code. Heparin subcutaneous. Overall, patient received abx, duoneb. Walk test indicated need for home O2 which was arranged. Patient was subsequently discharged home with home health. - Time Spent with Patient Total time spent providing and/or coordinating discharge services: Less than 30 minutes Exam Vital signs: Intake & Output 01/03/18 01/04/18 01/04/18 18:59 06:59 18:59 Other: Date of Last Bowel Movement 01/03/18 Results Procedures completed during hospitalization: None. Labs on day of discharge: Preliminary micro results at discharge 01/01/18 15:30 Aerobic Blood Culture - Preliminary Blood - Peripheral No growth in 3 days Anaerobic Blood Culture - Preliminary No growth in 3 days 01/01/18 15:35 Aerobic Blood Culture - Preliminary Blood - Peripheral No growth in 3 days Anaerobic Blood Culture - Preliminary No growth in 3 days - Impressions ITS Impressions Chest X-Ray 01/01/18 13:21 CONCLUSION: Mild nonspecific infiltrates in both lung bases, right greater than left. Bibasilar pneumonia would be a consideration. Discharge Plan - Discharge Disposition Patient Disposition: /Home Health Service - Discharge Condition Condition: Good - Discharge Order Discharge Orders: Discharge Order (Routine); Ordered 01/03/18 Ordered By: Bc Ervin - Discharge Details Anticipated Discharge Date: 01/03/18 - Physicians Team Primary Care Provider: UNKNOWN, Attending Provider: Bc Ervin
== END 2018-01-03 16:39 | disposition home health service (06) ==
LOC: EDBD → NEPC 12:16 → NEDA 15:29 → N05 19:06
PROVIDERS: ADMIT Hospitalist; ATTEND Hospitalist
DX: E78.5 Hyperlipidemia, unspecified; J18.9 Pneumonia, unspecified organism; F17.210 Nicotine dependence, cigarettes, uncomplicated; N18.3 Chronic kidney disease, stage 3 (moderate); I12.9 Hypertensive chronic kidney disease with stage 1 through stage 4 chronic kidney disease, or unspecified chronic kidney disease; J44.1 Chronic obstructive pulmonary disease with (acute) exacerbation; J44.0 Chronic obstructive pulmonary disease with (acute) lower respiratory infection; E78.00 Pure hypercholesterolemia, unspecified; A41.9 Sepsis, unspecified organism; N17.9 Acute kidney failure, unspecified

== ENCOUNTER 2018-01-22 13:58 | Inpatient (IN) ==
[2018-01-22] MEDS ORDERED: Sod Chloride 0.9% Inj 1,000 ML IV.SIG ONE (14:08)
[2018-01-22] MEDS ORDERED: Labetalol HCl Inj 100 MG/20 ML Vial IV.PUSH ONE ×2 (14:12→16:00)
--- NOTE | 2018-01-22 14:12 | ED ---
HPI General Chief complaint: Weakness Stated complaint: weakness Time Seen by Provider: 01/22/18 14:08 Source: patient Mode of arrival: EMS Limitations: no limitations History of Present Illness HPI Narrative: 77-year-old female with history of hypertension, hyperlipidemia, COPD with continuous tobacco use present emergency department via [facility] for evaluation of weakness and lethargy that has been worsening over the last couple of days. Patient states that she Skypes with her family on a daily basis and they have noticed that she has become more lethargic and weak. Currently, patient denies fever, chills, chest pain, shortness of breath, abdominal pain, leg pain. Patient does know what does not know why she feels weak. [facility] states that there may have been a left-sided facial droop but no other deficits. Blood glucose 109 with EV[facility]. Patient says she has been eating and drinking normally. She normally is independent, ambulates with a cane, and lives alone. She notes that she was diagnosed with pneumonia couple of weeks ago, completed a full course of antibiotics and was fine up until a couple days ago. Patient takes Lortab for chronic back pain. Related Data Home Medications Medication Instructions Recorded Confirmed albuterol sulfate [Ventolin HFA] 2 puff INHALATION Q6H PRN 01/01/18 01/22/18 duloxetine 30 mg PO DAILY 01/01/18 01/22/18 hydralazine 25 mg PO TID 01/01/18 01/22/18 hydrocodone-acetaminophen [[place]] 1 tab PO Q6H PRN 01/01/18 01/22/18 meloxicam 7.5 mg PO DAILY 01/01/18 01/22/18 oxybutynin chloride 2.5 mg PO BID 01/01/18 01/22/18 quetiapine 25 mg PO DAILY 01/01/18 01/22/18 temazepam 15 mg PO HS 01/01/18 01/22/18 budesonide-formoterol 2 puff INHALATION BID 01/22/18 01/22/18 furosemide [Lasix] 20 mg PO DAILY 01/22/18 01/22/18 levothyroxine [Synthroid] 50 mcg PO DAILY 01/22/18 01/22/18 pravastatin 20 mg PO DAILY 01/22/18 01/22/18 risperidone 1 mg PO DAILY 01/22/18 01/22/18 Previous Rx's Medication Instructions Recorded prednisone 20 mg PO BID #8 tab 01/03/18 Allergies Allergy/AdvReac Type Severity Reaction Status Date / Time Iodinated Contrast- Oral and Allergy Intermediate Itching Verified 01/22/18 14: 04 IV Dye [Contrast] Review of Systems ROS: all other systems reviewed are negative [facility] Family History Family History Other Hypothyroidism Social History Social History Substance History: No History of Abuse Second Hand Smoke Exposure: No Smoking Status: Heavy tobacco smoker Tobacco Type: Cigarettes Packs Per Day: 0.5 Cigarettes Per Day: 10.0 How Often Do You Have a Drink Containing Alcohol: Never Recent Travel in [facility] within the Last 8 Weeks: No Exam Narrative Exam Narrative: GENERAL: WD, WN in mild distress SKIN: Focused skin assessment warm/dry. HEAD: Atraumatic. Normocephalic. EYES: Pupils equal and round. No scleral icterus. No injection or drainage. EOMI ENT: No nasal bleeding or discharge. Mucous membranes pink and dry NECK: Trachea midline. No JVD. No lymphadenopathy CARDIOVASCULAR: Regular rate and rhythm. No murmur appreciated. RESPIRATORY: No accessory muscle use. Clear to auscultation. Breath sounds equal bilaterally. GASTROINTESTINAL: Abdomen soft, non-tender, nondistended. Hepatic and splenic margins not palpable. MUSCULOSKELETAL: No obvious deformities. No clubbing. No cyanosis. No edema. no TTP to calves NEUROLOGICAL: Awake and alert. Required Cranial nerves II through XII intact. Motor and sensory grossly within normal limits. Five out of 5 muscle strength in all muscle groups. Normal speech. PSYCHIATRIC: Appropriate mood and affect; insight and judgment normal. Course Initial Documented Vital Signs Temperature 98.0 F 01/22/18 14:05 Pulse Rate 82 01/22/18 14:05 Respiratory Rate 18 01/22/18 14:05 Blood Pressure 230/100 H 01/22/18 14:05 Pulse Oximetry 98 01/22/18 14:05 Last Documented Vital Signs Temperature 98.0 F 01/22/18 14:05 Pulse Rate 82 01/22/18 18:00 Respiratory Rate 16 01/22/18 16:21 Blood Pressure 184/80 H 01/22/18 18:00 Pulse Oximetry 98 01/22/18 15:30 Medical Decision Making JOCELYN Attestation JOCELYN supervised visit: Yes Attestation: I was present with the advanced practitioner during the management of this patient. I discussed the case with the advanced practitioner and agree with the findings and plan as documented in their note except as noted below. 77yF brought in by EMS for weakness and malaise. The patient was admitted to our institution from 01/02- for bilateral pneumonia and discharged home. She sats that she finished taking antibiotics several days ago, initially felt better, but over the past few days has felt "worn out" with generalized weakness / fatigue. Admits to chills but denies fever, denies chest pain or dyspnea, and says that her cough has resolved. Lives at home on her own, uses a cane/ walker to ambulate but reports difficulty even with these devices over the past 1-2 days. No acute distress NCAT RRR No wheezing or rhonchi, diminished breath sounds at bases bilaterally Abdomen soft and non-tender No lower extremity edema Oriented to person and place, answers questions slowly but appropriately, appears confused, moving all extremities, no slurred speech or aphasia A/P: 77yF presenting with weakness EKG and monitor Labs CXR CTH UA MDM Narrative Medical decision making narrative: 77y female with a history of COPD with continuous tobacco use, HTN. HLD presents to the ED via EV[facility] with weakness that has worsened over the last few days. Vitals demonstrate BP 230/100. Labetolol 10mg adminstered IV. Labs ordered to include sepsis workup as she was recently diagnosed and admitted for PNA. Pt given labetalol without significant improvement of BP. Unfortunately, IV hydralazine is not available. Will give p.o. hydralazine, Nitropaste 1", and additional 10 mg labetalol. Based off of the findings today, patient may have hypertensive encephalopathy versus significant dehydration. Kidney function appears stable. Cardiac enzymes negative. Potassium 5.3 but noted with slight hemolysis. TSH 3.000, Lactic 0.5, UA non contributory Head CT without acute process. Chest x-ray stable from January 01, 2018. I spoke with Dr. Fry who agrees to the admission. Differential Diagnosis Differential Diagnosis: CVA, ICH, sepsis, UTI, dehydration Medical Records Medical records reviewed: Yes I reviewed the patient's medical records. Lab Data Result diagrams: 01/22/18 14:20 01/22/18 14:20 Lab Results 01/22/18 01/22/18 01/22/18 Range/Units 14:12 14:20 14:20 WBC 5.9 (4.0-11.0) th/mm3 RBC 3.84 L (4.00-5.30) mil/mm3 Hgb 11.4 L (11.6-15.3) gm/dL Hct 35.8 (35.0-46.0) % MCV 93.3 (80.0-100.0) fL MCH 29.8 (27.0-34.0) pg MCHC 32.0 (32.0-36.0) % RDW 15.0 (11.6-17.2) % Plt Count 210 (150-450) th/mm3 MPV 8.5 (7.0-11.0) fL Neut % (Auto) 59.8 (16.0-70.0) % Lymph % (Auto) 28.5 (9.0-44.0) % [place] % (Auto) 9.2 H (0.0-8.0) % Eos % (Auto) 2.2 (0.0-4.0) % Baso % (Auto) 0.3 (0.0-2.0) % Neut # (Auto) 3.5 (1.8-7.7) th/mm3 Lymph # (Auto) 1.7 (1.0-4.8) th/mm3 [place] # (Auto) 0.5 (0.0-0.9) th/mm3 Eos # (Auto) 0.1 (0.0-0.4) th/mm3 Baso # (Auto) 0.0 (0.0-0.2) th/mm3 WBC Differential . Differential Comment Auto diff final PT 10.0 (9.8-11.6) sec INR 1.0 Ratio Sodium (136-145) meq/L Potassium (3.5-5.1) meq/L Chloride (98-107) meq/L Carbon Dioxide (21.0-32.0) meq/L Anion Gap (5-15) meq/L BUN (7-18) mg/dL Creatinine (0.50-1.00) mg/dL Estimated GFR (>89) mL/min POC Glucose 109 (68-110) mg/dl Random Glucose (74-106) mg/dL Lactic Acid (0.4-2.0) mmol/L Calcium (8.5-10.1) mg/dL Magnesium (1.5-2.5) mg/dL Total Bilirubin (0.2-1.0) mg/dL AST (15-37) U/L ALT (10-53) U/L Alkaline Phosphatase (45-117) U/L Lactate Dehydrogenase (84-246) U/L Total Creatine Kinase (26-192) U/L Troponin I (0.02-0.05) ng/mL Total Protein (6.4-8.2) g/dL Albumin (3.4-5.0) g/dL TSH (0.358-3.740) uIU/mL Urine Color (Yellw/Straw) Urine Clarity (Clear) Urine pH (5.0-8.5) Ur Specific [place] (1.002-1.035) Urine Protein (Neg-Trace) mg/dL Urine Glucose (UA) (Negative) mg/dL Urine Ketones (Negative) mg/dL Urine Occult Blood (Negative) Urine Nitrate (Negative) Urine Bilirubin (Negative) Urine Urobilinogen (Less than 2) mg/dL Ur Leukocyte Esterase (Negative) Urine RBC (0-3) /hpf Urine WBC (0-5) /hpf Ur Squamous Epith Cells (0-5) /hpf Urine Bacteria (None) /hpf Micro UA Comment Urine Culture Comments 01/22/18 01/22/18 01/22/18 Range/Units 14:20 14:20 14:20 WBC (4.0-11.0) th/mm3 RBC (4.00-5.30) mil/mm3 Hgb (11.6-15.3) gm/dL Hct (35.0-46.0) % MCV (80.0-100.0) fL MCH (27.0-34.0) pg MCHC (32.0-36.0) % RDW (11.6-17.2) % Plt Count (150-450) th/mm3 MPV (7.0-11.0) fL Neut % (Auto) (16.0-70.0) % Lymph % (Auto) (9.0-44.0) % [place] % (Auto) (0.0-8.0) % Eos % (Auto) (0.0-4.0) % Baso % (Auto) (0.0-2.0) % Neut # (Auto) (1.8-7.7) th/mm3 Lymph # (Auto) (1.0-4.8) th/mm3 [place] # (Auto) (0.0-0.9) th/mm3 Eos # (Auto) (0.0-0.4) th/mm3 Baso # (Auto) (0.0-0.2) th/mm3 WBC Differential Differential Comment PT (9.8-11.6) sec INR Ratio Sodium 143 (136-145) meq/L Potassium 5.3 H (3.5-5.1) meq/L Chloride 112 H (98-107) meq/L Carbon Dioxide 24.5 (21.0-32.0) meq/L Anion Gap 7 (5-15) meq/L BUN 20 H (7-18) mg/dL Creatinine 2.13 H (0.50-1.00) mg/dL Estimated GFR 22 L (>89) mL/min POC Glucose (68-110) mg/dl Random Glucose 102 (74-106) mg/dL Lactic Acid (0.4-2.0) mmol/L Calcium 8.1 L (8.5-10.1) mg/dL Magnesium 2.2 (1.5-2.5) mg/dL Total Bilirubin 0.3 (0.2-1.0) mg/dL AST 22 (15-37) U/L ALT 12 (10-53) U/L Alkaline Phosphatase 61 (45-117) U/L Lactate Dehydrogenase 271 H (84-246) U/L Total Creatine Kinase 68 (26-192) U/L Troponin I Less than 0.02 L (0.02-0.05) ng/mL Total Protein 6.3 L (6.4-8.2) g/dL Albumin 2.6 L (3.4-5.0) g/dL TSH 3.000 (0.358-3.740) uIU/mL Urine Color Yellow (Yellw/Straw) Urine Clarity Clear (Clear) Urine pH 6.0 (5.0-8.5) Ur Specific [place] 1.013 (1.002-1.035) Urine Protein 500 or greater (Neg-Trace) mg/dL Urine Glucose (UA) Negative (Negative) mg/dL Urine Ketones Negative (Negative) mg/dL Urine Occult Blood Negative (Negative) Urine Nitrate Negative (Negative) Urine Bilirubin Negative (Negative) Urine Urobilinogen Less than 2 (Less than 2) mg/dL Ur Leukocyte Esterase Negative (Negative) Urine RBC 1 (0-3) /hpf Urine WBC Less than 1 (0-5) /hpf Ur Squamous Epith Cells 1 (0-5) /hpf Urine Bacteria Rare H (None) /hpf Micro UA Comment Cath-culture ind Urine Culture Comments Cath-cult indicated 01/22/18 Range/Units 14:29 WBC (4.0-11.0) th/mm3 RBC (4.00-5.30) mil/mm3 Hgb (11.6-15.3) gm/dL Hct (35.0-46.0) % MCV (80.0-100.0) fL MCH (27.0-34.0) pg MCHC (32.0-36.0) % RDW (11.6-17.2) % Plt Count (150-450) th/mm3 MPV (7.0-11.0) fL Neut % (Auto) (16.0-70.0) % Lymph % (Auto) (9.0-44.0) % [place] % (Auto) (0.0-8.0) % Eos % (Auto) (0.0-4.0) % Baso % (Auto) (0.0-2.0) % Neut # (Auto) (1.8-7.7) th/mm3 Lymph # (Auto) (1.0-4.8) th/mm3 [place] # (Auto) (0.0-0.9) th/mm3 Eos # (Auto) (0.0-0.4) th/mm3 Baso # (Auto) (0.0-0.2) th/mm3 WBC Differential Differential Comment PT (9.8-11.6) sec INR Ratio Sodium (136-145) meq/L Potassium (3.5-5.1) meq/L Chloride (98-107) meq/L Carbon Dioxide (21.0-32.0) meq/L Anion Gap (5-15) meq/L BUN (7-18) mg/dL Creatinine (0.50-1.00) mg/dL Estimated GFR (>89) mL/min POC Glucose (68-110) mg/dl Random Glucose (74-106) mg/dL Lactic Acid 0.5 (0.4-2.0) mmol/L Calcium (8.5-10.1) mg/dL Magnesium (1.5-2.5) mg/dL Total Bilirubin (0.2-1.0) mg/dL AST (15-37) U/L ALT (10-53) U/L Alkaline Phosphatase (45-117) U/L Lactate Dehydrogenase (84-246) U/L Total Creatine Kinase (26-192) U/L Troponin I (0.02-0.05) ng/mL Total Protein (6.4-8.2) g/dL Albumin (3.4-5.0) g/dL TSH (0.358-3.740) uIU/mL Urine Color (Yellw/Straw) Urine Clarity (Clear) Urine pH (5.0-8.5) Ur Specific [place] (1.002-1.035) Urine Protein (Neg-Trace) mg/dL Urine Glucose (UA) (Negative) mg/dL Urine Ketones (Negative) mg/dL Urine Occult Blood (Negative) Urine Nitrate (Negative) Urine Bilirubin (Negative) Urine Urobilinogen (Less than 2) mg/dL Ur Leukocyte Esterase (Negative) Urine RBC (0-3) /hpf Urine WBC (0-5) /hpf Ur Squamous Epith Cells (0-5) /hpf Urine Bacteria (None) /hpf Micro UA Comment Urine Culture Comments Imaging Data Radiologist's impression: Chest X-Ray 01/22/18 14:08 CONCLUSION: Stable appearance with mild patchy opacity again noted the lung bases. Head CT 01/22/18 14:08 CONCLUSION: 1. No acute infarct, acute hemorrhage, midline shift or extra-axial fluid collections. 2. 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 3. Thickening of the rebollar of the right maxillary sinus consistent with changes related to chronic sinusitis. No air-fluid level or significant mucosal thickening is noted. . ECG Data Attestation: I personally reviewed and interpreted this ECG as follows: Interpretation: Rate: 86 BPM Rhythm: Sinus [place]: Normal Intervals: Normal intervals, no blocks, QTc 410 ms Q waves: V2 T waves: Upright, no inversions ST segments: No elevations or depressions Impression: Non-specific EKG, no changes as compared to EKG from 01/01/2018. Discharge Plan Discharge Disposition Patient Disposition: 30 Still Patient Discharge Condition Condition: Stable Discharge Details Diagnosis: Hypertension, Weakness, Encephalopathy, hypertensive Physicians Team ED Provider: Sussy Castellon ED Midlevel Provider: Yamila Kumar Primary Care Provider: UNKNOWN, Attending Provider: Gabriel Fry Status ED Status: Left Department Discharge Information Discharge Date/Time: 01/22/18 18:30
--- NOTE | 2018-01-22 14:37 | XR ---
EXAM DATE: 01/22/2018 2:32 PM EDT AGE/SEX: 77 years / Female INDICATIONS: Chronic obstructive pulmonary disease. Patient has weakness. CLINICAL DATA: This is the patient's initial encounter. Patient reports that signs and symptoms have been present for 1 week and indicates a pain score of 0/10. MEDICAL/SURGICAL HISTORY: Hypertension. Congestive heart failure. Pt. Was treated for pneumonia 1 week ago per RN. None. COMPARISON: [facility] [place], CHEST 1V SINGLE AP, 01/01/2018. . FINDINGS: A single AP view of the chest demonstrates the lungs to be symmetrically aerated without evidence of mass or effusion. There is mild patchy opacity again noted in the lung bases without significant miguel a nge. The heart size is mildly prominent. Atherosclerotic changes are present in the aorta. Osseous st ructures are intact. There is a mild scoliosis. There are multiple overlying electrocardiogram leads . CONCLUSION: Stable appearance with mild patchy opacity again noted the lung bases. Electronically signed by: Johnson Telles MD 01/22/2018 2:36 PM EDT
--- NOTE | 2018-01-22 14:54 | CT ---
EXAM DATE: 01/22/2018 2:47 PM EDT AGE/SEX: 77 years / Female INDICATIONS: Weakness. CLINICAL DATA: This is the patient's initial encounter. Patient reports that signs and symptoms have been present for 2 weeks and indicates a pain score of 0/10. MEDICAL/SURGICAL HISTORY: Chronic obstructive pulmonary disease. Hypertension. Hysterectomy. RADIATION DOSE: 56.43 CTDI (mGy) COMPARISON: No prior exams available for comparison. TECHNIQUE: CT of the head without contrast. Using automated exposure control and adjustment of the mA and/or kV according to patient size, radiation dose was kept as low as reasonably achievable to ob tain optimal diagnostic quality images. DICOM format image data is available electronically for revi ew and comparison. FINDINGS: Cerebrum: The ventricles are normal for age. No evidence of midline shift, mass lesion, hemorrhage or acute infarction. No extraaxial fluid collections are seen. Posterior Fossa: The brainstem is intact. There is a tiny old lacunar infarct within the right cere bellar hemisphere. The 4th ventricle is midline. The cerebellopontine angle is unremarkable. Extracranial: The visualized portion of the orbits is intact. There is thickening of the rebollar of th e right maxillary sinus consistent with changes related to chronic sinusitis. No air-fluid level or s ignificant mucosal thickening is noted. Skull: The calvaria is intact. No evidence of skull fracture. CONCLUSION: 1. No acute infarct, acute hemorrhage, midline shift or extra-axial fluid collections. 2. 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 3. Thickening of the rebollar of the right maxillary sinus consistent with changes related to chronic s inusitis. No air-fluid level or significant mucosal thickening is noted. . Electronically signed by: Arthur Peralta MD 01/22/2018 2:52 PM EDT
[2018-01-22 14:58] LABS: Bacteria,Urine Rare /hpf; Bilirubin,Urine Negative (Negative); Clarity,Urine Clear (Clear); Color,Urine Yellow (Yellw/Straw); Glucose,Urine (UA) Negative (Negative); Leukocyte Esterase,Urine Negative (Negative); Nitrite,Urine Negative (Negative); Specific Gravity,Urine 1.013 (1.002-1.035); Squamous Epithelial Cell,Urine 1 /hpf (0-5)
[2018-01-22 15:19] LABS: Baso % (Auto) 0.3 % (0.0-2.0); Eos # (Auto) 0.1 th/mm3 (0.0-0.4); Eos % (Auto) 2.2 % (0.0-4.0); Hematocrit 35.8 % (35.0-46.0); Hemoglobin 11.4 gm/dL (11.6-15.3); Lymph # (Auto) 1.7 th/mm3 (1.0-4.8); Lymph % (Auto) 28.5 % (9.0-44.0); Mean Corpuscular Hemoglobin 29.8 pg (27.0-34.0); Mean Corpuscular Volume 93.3 fL (80.0-100.0); Mean Platelet Volume 8.5 fL (7.0-11.0); Mono # (Auto) 0.5 th/mm3 (0.0-0.9); Mono % (Auto) 9.2 % (0.0-8.0); Neut # (Auto) 3.5 th/mm3 (1.8-7.7); Neut % (Auto) 59.8 % (16.0-70.0); Platelet Count 210 th/mm3 (150-450); Red Blood Count 3.84 mil/mm3 (4.00-5.30); White Blood Count 5.9 th/mm3 (4.0-11.0)
[2018-01-22] MEDS ORDERED: hydrALAZINE HCl Inj 20 MG/ML Vial IV.PUSH ONE (15:28)
--- NOTE | 2018-01-22 15:44 | ECG ---
Date Performed: 01/22/2018 Time Performed: 14:09:54 PTAGE: 77 years EKG: Sinus rhythm MINIMAL VOLTAGE CRITERIA FOR LVH, CONSIDER NORMAL VARIANT NONSPECIFIC T-WAVE ABNORMALITY BORDERLINE ECG PREVIOUS TRACING : 01/01/2018 12.31 Since the previous tracing, no significant change noted DOCTOR: Denisha Goins Interpretating Date/Time 01/22/2018 15:42:54
[2018-01-22 15:49] LABS: Alanine Aminotransferase 12 U/L (10-53); Albumin 2.6 g/dL (3.4-5.0); Alkaline Phosphatase 61 U/L (45-117); Anion Gap 7 meq/L (5-15); Aspartate Aminotransferase 22 U/L (15-37); Blood Urea Nitrogen 20 mg/dL (7-18); Calcium 8.1 mg/dL (8.5-10.1); Carbon Dioxide 24.5 meq/L (21.0-32.0); Chloride 112 meq/L (98-107); Glomerular Filtration Rate 22 mL/min (>89); Glucose,Random 102 mg/dL (74-106); Lactate Dehydrogenase 271 U/L (84-246); Magnesium 2.2 mg/dL (1.5-2.5); Sodium 143 meq/L (136-145); Total Protein 6.3 g/dL (6.4-8.2)
[2018-01-22] MEDS ORDERED: hydrALAZINE 50 MG Tablet PO ONE (15:55)
[2018-01-22 15:57] LABS: Creatine Kinase 68 U/L (26-192); Potassium 5.3 meq/L (3.5-5.1)
[2018-01-22] MEDS ORDERED: amLODIPine 5 MG Tablet PO ONE (17:55)
--- NOTE | 2018-01-22 18:31 | P.HPIM ---
History of Present Illness Primary Care Physician: UNKNOWN History of Present Illness: Mrs. Morillo is a 77-year-old female. She is in the hospital today secondary to weakness and lethargy with some confusion. Her sister is present at bedside and helps provide history. Compared to when she came in, she has improved. There are some signs of dehydration including an elevated BUN and creatinine, but patient expresses that she is regularly drinking fluids so this could represent renal disease. Hyperkalemia is present. Potentially contributory to renal findings are significant hypertensive urgency in this patient. Blood pressures are 230 mmHg systolic upon arrival. When seen patient is more alert and oriented to time of arrival. - Diagnosis (1) Hypertensive urgency (2) Hyperkalemia (3) Weakness (4) Encephalopathy, hypertensive Inpatient Certification: I certify that the inpatient services were ordered in accordance with Medicare regulations governing the order. This includes certification that hospital inpatient services are reasonable and necessary and in the case of services not specified as inpatient-only under 42 CFR 419.22(n), that they are appropriately provided as inpatient services in accordance to with the 2-midnight benchmark under 43 CFR 412.3(e) Estimated Total Length of Stay (Days): 3 Plans for Post Hospital Care: SNF Review of Systems Constitutional: Reports fatigue, Reports weakness, Denies fever(s) Eyes: Denies blurry vision, Denies bulging eyes, Denies change in vision, Denies double vision Ears, Nose, Mouth, and Throat: Denies abnormal hearing, Denies bleeding gums, Denies neck pain, Denies tongue swelling Cardiovascular: Denies chest pain, Denies chest pain at rest, Denies chest pain with activity Respiratory: Denies cough, Denies shortness of breath, Denies wheezing Gastrointestinal: Denies abdominal pain, Denies black, tarry stools, Denies bloating, Denies bright, red blood in stools Musculoskeletal: Denies abnormal walking, Denies back pain, Denies joint pain Skin/Breast: Denies rash, Denies skin pain, Denies skin ulcer Neurologic: Denies abnormal hearing, Denies abnormal movements, Denies abnormal speech PMFSH - History History Provided By: Patient - Medical History Medical History: Medical History (Last Updated 01/22/18 @ 14:09 by Lindsay Joel) Smoker COPD (chronic obstructive pulmonary disease) High cholesterol History of hysterectomy Hypertension - Surgical History Surgical History: Surgical History (Last Reviewed 01/22/18 @ 14:09 by Lindsay Joel) History of laminectomy - Family History Family History: Family History (Last Updated 01/22/18 @ 18:17 by Charly Fry MD) Other Hypothyroidism - Tobacco History Second Hand Smoke Exposure: Yes Tobacco Use In Past 30 Days: Yes Smoking Status: Current every day smoker Tobacco Type: Cigarettes Packs Per Day: 0.5 - Alcohol History How Often Do You Have a Drink Containing Alcohol: Never - Substance Use History Substance History: No History of Abuse - Travel History Recent Travel in the [facility] Within the Last 8 Weeks: No - Immunization History Tetanus Immunization: >5 Years Hx Influenza Vaccine This Season: Yes Medications and Allergies Active Medications: Active Medications Al Hydroxide/Mg Hydroxide (Milk Of Peña [place]) 30 ml PO Q12H PRN PRN Reason: Mild Constipation Amlodipine Besylate (Norvasc) 5 mg PO ONCE ONE Stop: 01/22/18 17:56 Amlodipine Besylate (Norvasc) 5 mg PO DAILY CHANTEL Clonidine HCl (Catapres) 0.1 mg PO Q6H PRN PRN Reason: SYS BP GREATER THAN 160 MMHG Sodium Chloride (Ns Inj) 1,000 mls @ 100 mls/hr IV.CONT .Q10H CHANTEL Ondansetron HCl (Zofran Inj) 4 mg IV.PUSH Q6H PRN PRN Reason: NAUSEA OR VOMITING Sodium Chloride (Ns Flush) 2 ml IV.FLUSH PRN PRN PRN Reason: FLUSH AFTER USING IV ACCESS Last Admin: 01/22/18 14:25 Dose: 2 ml Allergies Allergy/AdvReac Type Severity Reaction Status Date / Time Iodinated Contrast- Oral and Allergy Intermediate Itching Verified 01/22/18 14: 04 IV Dye [Contrast] Home Medications Medication Instructions Recorded Confirmed Type albuterol sulfate [Ventolin HFA] 2 puff INHALATION Q6H PRN 01/01/18 01/22/18 History duloxetine 30 mg PO DAILY 01/01/18 01/22/18 History hydralazine 25 mg PO TID 01/01/18 01/22/18 History hydrocodone-acetaminophen [Mobile] 1 tab PO Q6H PRN 01/01/18 01/22/18 History meloxicam 7.5 mg PO DAILY 01/01/18 01/22/18 History oxybutynin chloride 2.5 mg PO BID 01/01/18 01/22/18 History quetiapine 25 mg PO DAILY 01/01/18 01/22/18 History temazepam 15 mg PO HS 01/01/18 01/22/18 History budesonide-formoterol 2 puff INHALATION BID 01/22/18 01/22/18 History furosemide [Lasix] 20 mg PO DAILY 01/22/18 01/22/18 History levothyroxine [Synthroid] 50 mcg PO DAILY 01/22/18 01/22/18 History pravastatin 20 mg PO DAILY 01/22/18 01/22/18 History risperidone 1 mg PO DAILY 01/22/18 01/22/18 History Exam Vital signs: Vital Signs 01/22/18 14:05 01/22/18 14:08 01/22/18 15:30 Temperature 98.0 F Pulse Rate 82 85 76 Respiratory Rate 18 Blood Pressure 230/100 H 230/100 H Pulse Oximetry 98 98 98 01/22/18 16:21 Temperature Pulse Rate 76 Respiratory Rate 16 Blood Pressure 187/84 H Pulse Oximetry Intake & Output 01/21/18 01/22/18 01/22/18 18:59 06:59 18:59 Weight 51.256 kg Narrative: GENERAL: NAD, A&Ox3, blunted affect HEAD: Normocephalic. NECK: Supple, trachea midline. No lymphadenopathy. EYES: No scleral icterus. No injection or drainage. CARDIOVASCULAR: Regular rate and rhythm without murmurs, gallops, or rubs. RESPIRATORY: Breath sounds equal bilaterally. No accessory muscle use. GASTROINTESTINAL: Abdomen soft, non-tender, nondistended. MUSCULOSKELETAL: No cyanosis, or edema. No cogwheeling. SKIN: Warm and dry. NEURO: No focal neurological deficits. Results - Labs CBC & Chem 7: 01/22/18 14:20 01/22/18 14:20 Labs: Short CBC 01/22/18 Range/Units 14:20 WBC 5.9 (4.0-11.0) th/mm3 Hgb 11.4 L (11.6-15.3) gm/dL Hct 35.8 (35.0-46.0) % Plt Count 210 (150-450) th/mm3 BMP 01/22/18 14:20 Sodium 143 Potassium 5.3 H Chloride 112 H Carbon Dioxide 24.5 BUN 20 H Creatinine 2.13 H Calcium 8.1 L Cardiac Enzymes 01/22/18 01/22/18 Range/Units 14:20 14:20 Total Creatine Kinase 68 (26-192) U/L Troponin I Less than 0.02 L (0.02-0.05) ng/mL Liver Function 01/22/18 Range/Units 14:20 Total Bilirubin 0.3 (0.2-1.0) mg/dL AST 22 (15-37) U/L ALT 12 (10-53) U/L Alkaline Phosphatase 61 (45-117) U/L Albumin 2.6 L (3.4-5.0) g/dL Urine 01/22/18 Range/Units 14:20 Urine Color Yellow (Yellw/Straw) Urine Clarity Clear (Clear) Urine pH 6.0 (5.0-8.5) Ur Specific [place] 1.013 (1.002-1.035) Urine Protein 500 or greater (Neg-Trace) mg/dL Urine Glucose (UA) Negative (Negative) mg/dL - Imaging Impressions Chest X-Ray 01/22/18 14:08 CONCLUSION: Stable appearance with mild patchy opacity again noted the lung bases. Head CT 01/22/18 14:08 CONCLUSION: 1. No acute infarct, acute hemorrhage, midline shift or extra-axial fluid collections. 2. 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 3. Thickening of the rebollar of the right maxillary sinus consistent with changes related to chronic sinusitis. No air-fluid level or significant mucosal thickening is noted. . Caprini VTE Risk Assessment Caprini VTE Risk Assessment: No/Low Risk (score <= 1) Caprini Risk Assessment Model: Point Value = 1 Point Value = 2 Point Value = 3 Point Value = 5 Age 41-60 Minor surgery BMI > 25 kg/m2 Swollen legs Varicose veins or History of unexplained or recurrent spontaneous Oral contraceptives or hormone replacement Sepsis (< 1 month) Serious lung disease, including pneumonia (< 1 month) Abnormal pulmonary function Acute myocardial infarction Congestive heart failure (< 1 month) History of inflammatory bowel disease Medical patient at bed rest Age 61-74 Arthroscopic surgery Major open surgery (> 45 min) Laparoscopic surgery (> 45 min) Malignancy Confined to bed (> 72 hours) Immobilizing plaster cast Central venous access Age >= 75 History of VTE Family history of VTE Factor V Leiden Prothrombin [id number] Lupus anticoagulant Anticardiolipin antibodies Elevated serum homocysteine Heparin-induced thrombocytopenia Other congenital or acquired thrombophilia Stroke (< 1 month) Elective arthroplasty Hip, pelvis, or leg fracture Acute spinal cord injury (< 1 month) Prophylaxis Regimen: Total Risk Factor Score Risk Level Prophylaxis Regimen 0-1 Low Early ambulation 2 Moderate Order ONE of the following: *Sequential Compression Device (SCD) *Heparin 5000 units SQ BID 3-4 Higher Order ONE of the following medications: *Heparin 5000 units SQ TID *Enoxaparin/Lovenox 40 mg SQ daily (WT < 150 kg, CrCl > 30 mL/min) *Enoxaparin/Lovenox 30 mg SQ daily (WT < 150 kg, CrCl > 10-29 mL/min) *Enoxaparin/Lovenox 30 mg SQ BID (WT < 150 kg, CrCl > 30 mL/min) AND/OR *Sequential Compression Device (SCD) 5 or more Highest Order ONE of the following medications: *Heparin 5000 units SQ TID (Preferred with Epidurals) *Enoxaparin/Lovenox 40 mg SQ daily (WT < 150 kg, CrCl > 30 mL/min) *Enoxaparin/Lovenox 30 mg SQ daily (WT < 150 kg, CrCl > 10-29 mL/min) *Enoxaparin/Lovenox 30 mg SQ BID (WT < 150 kg, CrCl > 30 mL/min) AND *Sequential Compression Device (SCD) Assessment and Plan - Assessment (1) Hypertensive urgency Code(s): I16.0 - Hypertensive urgency Status: Acute (2) Hyperkalemia Code(s): E87.5 - Hyperkalemia Status: Acute (3) Weakness Code(s): R53.1 - Weakness Status: Acute (4) Encephalopathy, hypertensive Code(s): I67.4 - Hypertensive encephalopathy Status: Acute - Plan 77-year-old female admitted secondary to altered mental status, acute kidney injury, hyperkalemia, and hypertensive emergency/urgency. Hypertensive urgency Possible hypertensive emergency Start amlodipine As needed clonidine Follow blood pressures Metabolic encephalopathy versus hypertensive encephalopathy Lethargy Altered mental status Seroquel continued Restoril discontinued for now Mobile decreased from 10 mg to 5 mg for now Check thyroid panel Check cortisol level Follow blood sugars Acute kidney injury Dehydration versus primary renal disease Monitor to ensure no progressive renal failure IV hydration overnight and reevaluate in a.m. Avoid nephrotoxins Hyperkalemia Could be related to renal failure IV hydration overnight monitor Follow-up levels in a.m. Hypothyroidism Repeat evaluation levels as above Continue levothyroxine Hyperlipidemia Continue present treatment Follow as an outpatient COPD No exacerbation Continue baseline treatments DVT prophylaxis SCDs
[2018-01-22 20:12] LABS: T4 (Thyroxine) 8.4 mcg/dL (4.8-13.9)
[2018-01-22 20:20] LABS: Triiodothyronine (T3) Free 2.23 pg/mL (2.18-3.98)
[2018-01-22] MEDS: predniSONE 20 MG Tablet PO SCH (21:10)
[2018-01-22] MEDS: Sod Chloride 0.9% Inj 1,000 ML IV.CONT SCH (21:19)
[2018-01-22] MEDS ORDERED: Bisacodyl 10 MG Supp RECTAL PRN (23:04)
[2018-01-22] MEDS: Budesonide-Formoterol 160/4.5 MCG 6 GM Inhaler INH SCH (23:49)
[2018-01-23] MEDS: Sod Chloride 0.9% Inj 1,000 ML IV.CONT SCH ×2 (02:29→14:53)
[2018-01-23] MEDS: Levothyroxine 50 MCG Tablet PO SCH (05:21)
[2018-01-23] MEDS: hydrALAZINE 25 MG Tablet PO SCH ×3 (08:42→17:24)
[2018-01-23] MEDS: predniSONE 20 MG Tablet PO SCH (08:42)
[2018-01-23] MEDS: QUEtiapine 25 MG Tablet PO SCH (08:42)
[2018-01-23] MEDS: amLODIPine 5 MG Tablet PO SCH (08:43)
[2018-01-23] MEDS: Senna/Docusate Sodium 8.6/50 MG Tablet PO SCH ×2 (08:44→20:28)
[2018-01-23] MEDS: Budesonide-Formoterol 160/4.5 MCG 6 GM Inhaler INH SCH (08:44)
[2018-01-23 09:43] LABS: Baso % (Auto) 0.5 % (0.0-2.0); Hematocrit 38.4 % (35.0-46.0); Hemoglobin 12.7 gm/dL (11.6-15.3); Lymph # (Auto) 0.9 th/mm3 (1.0-4.8); Lymph % (Auto) 14.8 % (9.0-44.0); Mean Corpuscular HGB Conc 32.9 % (32.0-36.0); Mean Corpuscular Hemoglobin 30.3 pg (27.0-34.0); Mean Corpuscular Volume 92.1 fL (80.0-100.0); Mean Platelet Volume 8.4 fL (7.0-11.0); Mono # (Auto) 0.1 th/mm3 (0.0-0.9); Mono % (Auto) 2.2 % (0.0-8.0); Neut # (Auto) 5.2 th/mm3 (1.8-7.7); Neut % (Auto) 82.5 % (16.0-70.0); Platelet Count 243 th/mm3 (150-450); Red Blood Count 4.18 mil/mm3 (4.00-5.30); Red Cell Distribution Width 15.2 % (11.6-17.2); White Blood Count 6.3 th/mm3 (4.0-11.0)
[2018-01-23 10:00] LABS: Albumin 2.8 g/dL (3.4-5.0); Anion Gap 8 meq/L (5-15); Aspartate Aminotransferase 14 U/L (15-37); Blood Urea Nitrogen 19 mg/dL (7-18); Calcium 8.8 mg/dL (8.5-10.1); Carbon Dioxide 20.5 meq/L (21.0-32.0); Chloride 113 meq/L (98-107); Glomerular Filtration Rate 27 mL/min (>89); Glucose,Random 116 mg/dL (74-106); Magnesium 2.1 mg/dL (1.5-2.5); Sodium 141 meq/L (136-145)
[2018-01-23 10:01] LABS: Alanine Aminotransferase 11 U/L (10-53); Phosphorus 3.2 mg/dL (2.5-4.9)
[2018-01-23 10:03] LABS: Alkaline Phosphatase 63 U/L (45-117)
--- NOTE | 2018-01-23 10:36 | P.PN ---
Subjective Interval history: seen with staff nurse at [facility] more awake and alert oriented x 3 but appears drugged up states she sees a regular kidney MD and pain management doctor compalins of pain- "lot of back surgeries", baseline ambualtesd with a cane and occasionally a walker up and ambualted to day states she is on [place] 10 states she was brought in by her sister- found- lethargic at home states she takes fibercon for constipation Physical Exam Vital signs: Vital Signs 01/22/18 14:05 01/22/18 14:08 01/22/18 15:30 Temperature 98.0 F Pulse Rate 82 85 76 Respiratory Rate 18 Blood Pressure 230/100 H 230/100 H Pulse Oximetry 98 98 98 01/22/18 16:21 01/22/18 17:25 01/22/18 18:00 Temperature Pulse Rate 76 74 82 Respiratory Rate 16 Blood Pressure 187/84 H 192/93 H 184/80 H Pulse Oximetry 01/22/18 18:30 01/22/18 18:54 01/22/18 20:00 Temperature 97.4 F L 98 F Pulse Rate 90 84 82 Respiratory Rate 18 20 Blood Pressure 150/65 H 156/110 H Pulse Oximetry 99 98 01/23/18 00:00 01/23/18 00:10 01/23/18 04:00 Temperature 98 F 98 F Pulse Rate 86 86 86 Respiratory Rate 18 18 Blood Pressure 136/82 144/84 H Pulse Oximetry 94 L 98 01/23/18 08:00 Temperature 98.1 F Pulse Rate 95 H Respiratory Rate 19 Blood Pressure 154/90 H Pulse Oximetry 94 L Intake & Output 01/22/18 01/23/18 01/23/18 18:59 06:59 18:59 Intake Total 1360 / 1360 Balance 1360 / 1360 Weight 50.9 kg 51.4 kg Intake: IV 1000 / 1000 NS Inj 1,000 ML @ 100 mls/hr IV 1000 / 1000 .CONT .Q10H CHANTEL Rx#:[id number] Oral 360 / 360 Other: # Voids 2 Date of Last Bowel Movement 01/19/18 Narrative: awake and alert, no acute distress, orientedd x 3, speech slow but clear anicteric no nuchal rigidity lungs- no rales regular rhythm abdomen soft, nontender extremiteis - marsha pramod, moves all extremities spontaneoenosuly, no calf swelling neuro - awake and alert- speech slow but clear CN intact motor- moves all extrmeiteis generalized weakness gait testing deferred- but nurse states she up and walked to BR this am - Urinary Catheter Management Straight Cath placed during this visit: yes, but has since been removed by the nurse Reason for continuing: Not indwelling catheter Insertion date: 01/22/18 Insertion time: : Removal date: 01/22/18 Removal time: : Results - Labs CBC & Chem 7: 01/23/18 08:30 01/23/18 08:30 Laboratory Results - last 24 hr 01/22/18 01/22/18 01/22/18 14:12 14:20 14:20 WBC 5.9 RBC 3.84 L Hgb 11.4 L Hct 35.8 MCV 93.3 MCH 29.8 MCHC 32.0 RDW 15.0 Plt Count 210 MPV 8.5 Neut % (Auto) 59.8 Lymph % (Auto) 28.5 Craig % (Auto) 9.2 H Eos % (Auto) 2.2 Baso % (Auto) 0.3 Neut # (Auto) 3.5 Lymph # (Auto) 1.7 Craig # (Auto) 0.5 Eos # (Auto) 0.1 Baso # (Auto) 0.0 WBC Differential . Differential Comment Auto diff final PT 10.0 INR 1.0 Sodium Potassium Chloride Carbon Dioxide Anion Gap BUN Creatinine Estimated GFR POC Glucose 109 Random Glucose Lactic Acid Calcium Phosphorus Magnesium Total Bilirubin AST ALT Alkaline Phosphatase Lactate Dehydrogenase Total Creatine Kinase Troponin I Total Protein Albumin TSH Thyroxine (T4) Free T3 Cortisol Urine Color Urine Clarity Urine pH Ur Specific [place] Urine Protein Urine Glucose (UA) Urine Ketones Urine Occult Blood Urine Nitrate Urine Bilirubin Urine Urobilinogen Ur Leukocyte Esterase Urine RBC Urine WBC Ur Squamous Epith Cells Urine Bacteria Micro UA Comment Urine Culture Comments 01/22/18 01/22/18 01/22/18 14:20 14:20 14:20 WBC RBC Hgb Hct MCV MCH MCHC RDW Plt Count MPV Neut % (Auto) Lymph % (Auto) Craig % (Auto) Eos % (Auto) Baso % (Auto) Neut # (Auto) Lymph # (Auto) Craig # (Auto) Eos # (Auto) Baso # (Auto) WBC Differential Differential Comment PT INR Sodium 143 Potassium 5.3 H Chloride 112 H Carbon Dioxide 24.5 Anion Gap 7 BUN 20 H Creatinine 2.13 H Estimated GFR 22 L POC Glucose Random Glucose 102 Lactic Acid Calcium 8.1 L Phosphorus Magnesium 2.2 Total Bilirubin 0.3 AST 22 ALT 12 Alkaline Phosphatase 61 Lactate Dehydrogenase 271 H Total Creatine Kinase 68 Troponin I Less than 0.02 L Total Protein 6.3 L Albumin 2.6 L TSH 3.000 Thyroxine (T4) Free T3 Cortisol Urine Color Yellow Urine Clarity Clear Urine pH 6.0 Ur Specific [place] 1.013 Urine Protein 500 or greater Urine Glucose (UA) Negative Urine Ketones Negative Urine Occult Blood Negative Urine Nitrate Negative Urine Bilirubin Negative Urine Urobilinogen Less than 2 Ur Leukocyte Esterase Negative Urine RBC 1 Urine WBC Less than 1 Ur Squamous Epith Cells 1 Urine Bacteria Rare H Micro UA Comment Cath-culture ind Urine Culture Comments Cath-cult indicated 01/22/18 01/22/18 01/22/18 14:20 14:20 14:29 WBC RBC Hgb Hct MCV MCH MCHC RDW Plt Count MPV Neut % (Auto) Lymph % (Auto) Craig % (Auto) Eos % (Auto) Baso % (Auto) Neut # (Auto) Lymph # (Auto) Craig # (Auto) Eos # (Auto) Baso # (Auto) WBC Differential Differential Comment PT INR Sodium Potassium Chloride Carbon Dioxide Anion Gap BUN Creatinine Estimated GFR POC Glucose Random Glucose Lactic Acid 0.5 Calcium Phosphorus Magnesium Total Bilirubin AST ALT Alkaline Phosphatase Lactate Dehydrogenase Total Creatine Kinase Troponin I Total Protein Albumin TSH 2.930 Thyroxine (T4) 8.4 Free T3 2.23 Cortisol Urine Color Urine Clarity Urine pH Ur Specific [place] Urine Protein Urine Glucose (UA) Urine Ketones Urine Occult Blood Urine Nitrate Urine Bilirubin Urine Urobilinogen Ur Leukocyte Esterase Urine RBC Urine WBC Ur Squamous Epith Cells Urine Bacteria Micro UA Comment Urine Culture Comments 01/22/18 01/23/18 01/23/18 21:22 08:30 08:30 WBC 6.3 RBC 4.18 Hgb 12.7 Hct 38.4 MCV 92.1 MCH 30.3 MCHC 32.9 RDW 15.2 Plt Count 243 MPV 8.4 Neut % (Auto) 82.5 H Lymph % (Auto) 14.8 Craig % (Auto) 2.2 Eos % (Auto) 0.0 Baso % (Auto) 0.5 Neut # (Auto) 5.2 Lymph # (Auto) 0.9 L Craig # (Auto) 0.1 Eos # (Auto) 0.0 Baso # (Auto) 0.0 WBC Differential . Differential Comment Auto diff final PT INR Sodium 141 Potassium 5.0 Chloride 113 H Carbon Dioxide 20.5 L Anion Gap 8 BUN 19 H Creatinine 1.79 H Estimated GFR 27 L POC Glucose Random Glucose 116 H Lactic Acid Calcium 8.8 Phosphorus 3.2 Magnesium 2.1 Total Bilirubin 0.3 AST 14 L ALT 11 Alkaline Phosphatase 63 Lactate Dehydrogenase Total Creatine Kinase Troponin I Total Protein 7.0 D Albumin 2.8 L TSH Thyroxine (T4) Free T3 Cortisol 8.1 Urine Color Urine Clarity Urine pH Ur Specific [place] Urine Protein Urine Glucose (UA) Urine Ketones Urine Occult Blood Urine Nitrate Urine Bilirubin Urine Urobilinogen Ur Leukocyte Esterase Urine RBC Urine WBC Ur Squamous Epith Cells Urine Bacteria Micro UA Comment Urine Culture Comments - Imaging Impressions Chest X-Ray 01/22/18 14:08 CONCLUSION: Stable appearance with mild patchy opacity again noted the lung bases. Head CT 01/22/18 14:08 CONCLUSION: 1. No acute infarct, acute hemorrhage, midline shift or extra-axial fluid collections. 2. 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 3. Thickening of the rebollar of the right maxillary sinus consistent with changes related to chronic sinusitis. No air-fluid level or significant mucosal thickening is noted. . Assessment and Plan - Assessment (1) Hypertensive urgency Code(s): I16.0 - Hypertensive urgency Status: Acute (2) Hyperkalemia Code(s): E87.5 - Hyperkalemia Status: Acute (3) Weakness Code(s): R53.1 - Weakness Status: Acute (4) Encephalopathy, hypertensive Code(s): I67.4 - Hypertensive encephalopathy Status: Acute - Plan 77-year-old female admitted secondary to altered mental status, acute kidney injury, hyperkalemia, and hypertensive emergency/urgency. Hypertensive urgency Possible hypertensive emergency Start amlodipine As needed clonidine Follow blood pressures possibly overmedicated Metabolic encephalopathy versus hypertensive encephalopathy ? Drug induced - on chronic pain meds Lethargic on admission MS improved this am- awake and interactive and able to give history Seroquel continued REstart her Cymbalta tomorrow Restoril discontinued for now [place] decreased from 10 mg to 5 mg for now- patient states she takes 10 mg Check thyroid panel- good Follow blood sugars suspect patient getting overmedicated as OP Acute kidney injury with underlying CKD Dehydration versus primary renal disease Monitor to ensure no progressive renal failure IV hydration - continue IV hydration - states she is ff by a Nurse Recruiter as OP Avoid nephrotoxins Hyperkalemia- improved Could be related to renal failure IV hydration overnight monitor Hypothyroidism Repeat evaluation levels as above Continue levothyroxine Hyperlipidemia Continue present treatment Follow as an outpatient COPD No exacerbation Continue baseline treatments on Prednisone - will confirm if she is on this chronically DVT prophylaxis SCDs Lovenox 30 mg SQ daily GEt PT/OT eval - per patient uses a cane/walker at home [facility] seen with sisted at bedside this pm- see pain management- Sami Swift PCP- Dr.Watry Cervantes she will try to get her med lists for us
[2018-01-23 19:42] LABS: Amphetamine Screen,Urine Neg (Neg); Barbiturate Screen,Urine Neg (Neg); Cannabinoid Screen,Urine Neg (Neg); Cocaine Screen,Urine Neg (Neg)
[2018-01-23 19:43] LABS: Opiate Screen,Urine Neg (Neg)
[2018-01-24] MEDS: Budesonide-Formoterol 160/4.5 MCG 6 GM Inhaler INH SCH ×3 (00:32→22:14)
[2018-01-24] MEDS: Sod Chloride 0.9% Inj 1,000 ML IV.CONT SCH ×3 (00:32→22:10)
[2018-01-24] MEDS: Levothyroxine 50 MCG Tablet PO SCH (06:39)
[2018-01-24] MEDS: Enoxaparin Inj 30 MG/0.3 ML Syringe SQ SCH (08:17)
[2018-01-24] MEDS: QUEtiapine 25 MG Tablet PO SCH (08:18)
[2018-01-24] MEDS: Senna/Docusate Sodium 8.6/50 MG Tablet PO SCH ×2 (08:18→22:12)
[2018-01-24] MEDS: amLODIPine 5 MG Tablet PO SCH (08:18)
[2018-01-24] MEDS: hydrALAZINE 25 MG Tablet PO SCH ×3 (08:18→17:31)
[2018-01-24] MEDS ORDERED: amLODIPine 5 MG Tablet PO ONE (13:08)
--- NOTE | 2018-01-24 14:59 | P.DS ---
Date of admission: 01/22/18 17:26 Primary care physician: UNKNOWN Brief History from admission: Mrs. Morillo is a 77-year-old female. She is in the hospital today secondary to weakness and lethargy with some confusion. Her sister is present at bedside and helps provide history. Compared to when she came in, she has improved. There are some signs of dehydration including an elevated BUN and creatinine, but patient expresses that she is regularly drinking fluids so this could represent renal disease. Hyperkalemia is present. Potentially contributory to renal findings are significant hypertensive urgency in this patient. Blood pressures are 230 mmHg systolic upon arrival. When seen patient is more alert and oriented to time of arrival. DS: Diagnosis - Discharge Diagnosis (1) Hypertensive urgency Status: Acute (2) Hyperkalemia Status: Acute (3) Weakness Status: Acute (4) Encephalopathy, hypertensive Status: Acute DS: Medications - Discharge Medications Prescriptions: amlodipine [Norvasc] 10 mg PO DAILY #30 tab DS: Summary Hospital Course: Mrs. Morillo is a 77 year old female. She was admitted secondary to hypertensive urgency. Encephalopathy was present and may have been related to the degree of hypertension which was about 230 mmHg systolic. At baseline she does have hypertension. Treatments were adjusted while here. Currently she is showing stability. Acute kidney injury present on top of chronic kidney disease at time of admit has shown improvement with resolution of her blood pressure problems. She did well with PT. Today she is medically stable and cleared for discharge back to home. - Time Spent with Patient Total time spent providing and/or coordinating discharge services: Less than 30 minutes - Quality: VTE Deep Vein Thrombosis/Pulmonary Embolism Present on Admission: No Exam Vital signs: Vital Signs 01/23/18 16:00 01/23/18 20:00 01/23/18 23:46 Temperature 97.9 F 98.6 F 97.2 F L Pulse Rate 90 92 H 92 H Respiratory Rate 18 18 18 Blood Pressure 136/73 130/59 L 138/65 Pulse Oximetry 95 94 L 96 01/24/18 00:43 01/24/18 03:52 01/24/18 04:16 Temperature 97.2 F L Pulse Rate 98 H 73 69 Respiratory Rate 18 Blood Pressure 139/65 Pulse Oximetry 93 L 01/24/18 08:00 01/24/18 12:00 Temperature 98.3 F Pulse Rate 82 97 H Respiratory Rate 18 Blood Pressure 169/84 H Pulse Oximetry 96 Intake & Output 01/23/18 01/24/18 01/24/18 18:59 06:59 18:59 Intake Total 2360 / 2360 240 / 240 1000 / 1000 Output Total 0 / 0 Balance 2360 / 2360 240 / 240 1000 / 1000 Weight 53.7 kg Intake: IV 1999 1000 / 1000 NS Inj 1,000 ML @ 100 mls/hr IV 1999 1000 / 1000 .CONT .Q10H [facility] Rx#:[id number] Oral 360 / 360 240 / 240 Output: Urine 0 / 0 Other: # Voids 4 Date of Last Bowel Movement 01/19/18 01/23/18 # Bowel Movements 1 Results Procedures completed during hospitalization: None Labs on day of discharge: Labs from last 24 hours 01/23/18 17:50 Urine Opiates Screen Neg Ur Barbiturates Screen Neg Ur Amphetamines Screen Neg U Benzodiazepines Scrn Neg Urine Cocaine Screen Neg U Cannabinoids Screen Neg Preliminary micro results at discharge 01/22/18 14:20 Aerobic Blood Culture - Preliminary Blood - Peripheral No growth in 2 days Anaerobic Blood Culture - Preliminary No growth in 2 days 01/22/18 14:10 Aerobic Blood Culture - Preliminary Blood - Peripheral No growth in 2 days Anaerobic Blood Culture - Preliminary No growth in 2 days - Impressions ITS Impressions Chest X-Ray 01/22/18 14:08 CONCLUSION: Stable appearance with mild patchy opacity again noted the lung bases. Head CT 01/22/18 14:08 CONCLUSION: 1. No acute infarct, acute hemorrhage, midline shift or extra-axial fluid collections. 2. 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 3. Thickening of the rebollar of the right maxillary sinus consistent with changes related to chronic sinusitis. No air-fluid level or significant mucosal thickening is noted. . Discharge Plan - Discharge Disposition Patient Disposition: Discharge to SNF - Discharge Condition Condition: Stable - Discharge Order Discharge Orders: Discharge Order (Routine); Ordered 01/24/18 Ordered By: Charly Fry - Discharge Details Anticipated Discharge Date: 01/24/18 Discharge Comment: May discharge when Systolic BP is less than 160 mmHg. - Physicians Team Primary Care Provider: UNKNOWN, Attending Provider: Charly Fry
--- NOTE | 2018-01-24 15:00 | P.DCO ---
- Physical Therapy Order: Evaluate and treat, Improve ambulation, Strength and gait training - Home Health Nursing Order: Medical education, Signs/symptoms of disease process, Nursing assessment with vital signs - Certification I have seen patient Lori Morillo on 01/24/18. My clinical findings support the need for the requested home health care services because: Limited mobility due to disease progression, Deconditioned with increased weakness, Limited ability to care for self I certify that my clinical findings support that this patient is homebound because: Unsteady gait/balance, Unsafe to leave home unassisted, Unable to use public transportation
[2018-01-24 17:12] LABS: Calcium 8.3 mg/dL (8.5-10.1); Carbon Dioxide 23.9 meq/L (21.0-32.0); Potassium 4.1 meq/L (3.5-5.1)
--- NOTE | 2018-01-24 17:34 | P.PNIM ---
Subjective Interval history: Patient had a planned discharge today due to evidence of improved BP control. However, this afternoon she is at 222 mmHg systolic for a BP. Discharge deferred for further monitoring. Encephalopathy is improved. Physical Exam Vital signs: Vital Signs 01/23/18 20:00 01/23/18 23:46 01/24/18 00:43 Temperature 98.6 F 97.2 F L Pulse Rate 92 H 92 H 98 H Respiratory Rate 18 18 Blood Pressure 130/59 L 138/65 Pulse Oximetry 94 L 96 01/24/18 03:52 01/24/18 04:16 01/24/18 08:00 Temperature 97.2 F L 98.3 F Pulse Rate 73 69 82 Respiratory Rate 18 18 Blood Pressure 139/65 169/84 H Pulse Oximetry 93 L 96 01/24/18 12:00 01/24/18 16:49 Temperature 98.5 F Pulse Rate 101 H Respiratory Rate 20 Blood Pressure 145/79 H 222/100 H Pulse Oximetry 96 Intake & Output 01/23/18 01/24/18 01/24/18 18:59 06:59 18:59 Intake Total 2360 / 2360 240 / 240 1000 / 1000 Output Total 0 / 0 Balance 2360 / 2360 240 / 240 1000 / 1000 Weight 53.7 kg Intake: IV 1999 1000 / 1000 NS Inj 1,000 ML @ 100 mls/hr IV 1999 1000 / 1000 .CONT .Q10H [facility] Rx#:[id number] Oral 360 / 360 240 / 240 Output: Urine 0 / 0 Other: # Voids 4 Date of Last Bowel Movement 01/19/18 01/23/18 # Bowel Movements 1 Narrative: GENERAL: NAD, A&Ox3, blunted affect HEAD: Normocephalic. NECK: Supple, trachea midline. No lymphadenopathy. EYES: No scleral icterus. No injection or drainage. CARDIOVASCULAR: Regular rate and rhythm without murmurs, gallops, or rubs. RESPIRATORY: Breath sounds equal bilaterally. No accessory muscle use. GASTROINTESTINAL: Abdomen soft, non-tender, nondistended. MUSCULOSKELETAL: No cyanosis, or edema. No cogwheeling. SKIN: Warm and dry. NEURO: No focal neurological deficits. - Urinary Catheter Management Straight Cath placed during this visit: yes, but has since been removed by the nurse Reason for continuing: Not indwelling catheter Insertion date: 01/22/18 Insertion time: 14:18 Removal date: 01/22/18 Removal time: 14:18 Results - Labs CBC & Chem 7: 01/23/18 08:30 01/24/18 14:30 Laboratory Results - last 24 hr 01/23/18 01/24/18 17:50 14:30 Sodium 146 H Potassium 4.1 D Chloride 115 H Carbon Dioxide 23.9 Anion Gap 7 BUN 21 H Creatinine 1.75 H Estimated GFR 28 L Random Glucose 91 Calcium 8.3 L Urine Opiates Screen Neg Ur Barbiturates Screen Neg Ur Amphetamines Screen Neg U Benzodiazepines Scrn Neg Urine Cocaine Screen Neg U Cannabinoids Screen Neg Microbiology 01/22/18 14:20 Blood - Peripheral Aerobic Blood Culture - Preliminary No growth in 2 days 01/22/18 14:20 Blood - Peripheral Anaerobic Blood Culture - Preliminary No growth in 2 days 01/22/18 14:10 Blood - Peripheral Aerobic Blood Culture - Preliminary No growth in 2 days 01/22/18 14:10 Blood - Peripheral Anaerobic Blood Culture - Preliminary No growth in 2 days 01/22/18 14:20 Catheterized Urine Urine Culture - Final No growth in 48 hours - Procedures None Assessment and Plan - Assessment (1) Hypertensive urgency Code(s): I16.0 - Hypertensive urgency Status: Acute (2) Hyperkalemia Code(s): E87.5 - Hyperkalemia Status: Acute (3) Weakness Code(s): R53.1 - Weakness Status: Acute (4) Encephalopathy, hypertensive Code(s): I67.4 - Hypertensive encephalopathy Status: Acute - Plan 77-year-old female admitted secondary to altered mental status, acute kidney injury, hyperkalemia, and hypertensive emergency/urgency. Not controlled this afternoon. Discharge discontinued. Follow BP for stability. Amlodipine has been increased. Continue PRN IV Enalapril and PRN Clonidine. Hypertensive urgency Possible hypertensive emergency Start amlodipine As needed clonidine Follow blood pressures Metabolic encephalopathy versus hypertensive encephalopathy Lethargy Altered mental status Seroquel continued Restoril discontinued for now [place] 5 mg for now Check thyroid panel Check cortisol level Follow blood sugars Acute kidney injury Dehydration versus primary renal disease Monitor to ensure no progressive renal failure IV hydration overnight and reevaluate in a.m. Avoid nephrotoxins Hyperkalemia Could be related to renal failure IV hydration overnight monitor Follow-up levels in a.m. Hypothyroidism Repeat evaluation levels as above Continue levothyroxine Hyperlipidemia Continue present treatment Follow as an outpatient COPD No exacerbation Continue baseline treatments DVT prophylaxis SCDs
[2018-01-24] MEDS ORDERED: hydrALAZINE 25 MG Tablet PO PRN (19:34)
[2018-01-24] MEDS ORDERED: hydrALAZINE 50 MG Tablet PO ONE (19:34)
[2018-01-25 04:57] LABS: Baso % (Auto) 0.5 % (0.0-2.0); Eos # (Auto) 0.2 th/mm3 (0.0-0.4); Eos % (Auto) 3.4 % (0.0-4.0); Hematocrit 35.3 % (35.0-46.0); Hemoglobin 11.4 gm/dL (11.6-15.3); Lymph % (Auto) 31.8 % (9.0-44.0); Mean Corpuscular HGB Conc 32.2 % (32.0-36.0); Mean Corpuscular Hemoglobin 29.5 pg (27.0-34.0); Mean Corpuscular Volume 91.8 fL (80.0-100.0); Mean Platelet Volume 8.2 fL (7.0-11.0); Mono # (Auto) 0.5 th/mm3 (0.0-0.9); Mono % (Auto) 7.5 % (0.0-8.0); Neut # (Auto) 3.5 th/mm3 (1.8-7.7); Neut % (Auto) 56.8 % (16.0-70.0); Platelet Count 223 th/mm3 (150-450); Red Blood Count 3.85 mil/mm3 (4.00-5.30); Red Cell Distribution Width 15.4 % (11.6-17.2); White Blood Count 6.2 th/mm3 (4.0-11.0)
[2018-01-25] MEDS: Sod Chloride 0.9% Inj 1,000 ML IV.CONT SCH (05:01)
[2018-01-25 05:12] LABS: Albumin 2.5 g/dL (3.4-5.0); Anion Gap 7 meq/L (5-15); Aspartate Aminotransferase 14 U/L (15-37); Blood Urea Nitrogen 22 mg/dL (7-18); Calcium 8.1 mg/dL (8.5-10.1); Carbon Dioxide 22.1 meq/L (21.0-32.0); Chloride 114 meq/L (98-107); Glomerular Filtration Rate 27 mL/min (>89); Glucose,Random 82 mg/dL (74-106); Potassium 4.5 meq/L (3.5-5.1); Sodium 143 meq/L (136-145)
[2018-01-25 05:13] LABS: Alanine Aminotransferase 12 U/L (10-53)
[2018-01-25 05:16] LABS: Alkaline Phosphatase 54 U/L (45-117)
[2018-01-25] MEDS: Levothyroxine 50 MCG Tablet PO SCH (05:16)
[2018-01-25] MEDS ORDERED: amLODIPine 10 MG Tablet PO SCH (09:00)
[2018-01-25] MEDS: QUEtiapine 25 MG Tablet PO SCH (10:20)
[2018-01-25] MEDS: Senna/Docusate Sodium 8.6/50 MG Tablet PO SCH (10:20)
[2018-01-25] MEDS: hydrALAZINE 25 MG Tablet PO SCH ×2 (10:21→13:24)
[2018-01-25] MEDS: Enoxaparin Inj 30 MG/0.3 ML Syringe SQ SCH (10:21)
[2018-01-25] MEDS: Budesonide-Formoterol 160/4.5 MCG 6 GM Inhaler INH SCH (10:22)
--- NOTE | 2018-01-25 11:38 | P.PN ---
Subjective Interval history: feeling better states chronic back pain no headaches, nausea or vomiting BP improved when told going home "thank god" Physical Exam Vital signs: Vital Signs 01/24/18 12:00 01/24/18 16:00 01/24/18 16:49 Temperature 98.5 F Pulse Rate 101 H 97 H Respiratory Rate 20 Blood Pressure 145/79 H 222/100 H Pulse Oximetry 96 01/24/18 18:21 01/24/18 20:00 01/25/18 00:00 Temperature 98.1 F 98.8 F Pulse Rate 92 H 85 Respiratory Rate 18 16 Blood Pressure 188/106 H 140/89 148/80 H Pulse Oximetry 96 94 L 01/25/18 04:00 01/25/18 08:00 Temperature 98.2 F 97.9 F Pulse Rate 81 87 Respiratory Rate 18 16 Blood Pressure 104/78 151/69 H Pulse Oximetry 96 95 Intake & Output 01/24/18 01/25/18 01/25/18 18:59 06:59 18:59 Intake Total 1000 / 1000 Output Total 900 / 900 Balance 1000 / 1000 -900 / -900 Weight 52.3 kg Intake: IV 1000 / 1000 NS Inj 1,000 ML @ 100 mls/hr IV 1000 / 1000 .CONT .Q10H [facility] Rx#:[id number] Output: Urine 900 / 900 Other: # Voids 1 Date of Last Bowel Movement 01/23/18 01/23/18 Narrative: GENERAL: NAD, A&Ox3, smiled to day and laughed HEAD: Normocephalic. NECK: Supple, trachea midline. No lymphadenopathy. EYES: No scleral icterus. No injection or drainage. CARDIOVASCULAR: Regular rate and rhythm without murmurs, gallops, or rubs. RESPIRATORY: Breath sounds equal bilaterally. No accessory muscle use. GASTROINTESTINAL: Abdomen soft, non-tender, nondistended. MUSCULOSKELETAL: No cyanosis, or edema. No cogwheeling. SKIN: Warm and dry. NEURO: No focal neurological deficits. - Urinary Catheter Management Straight Cath placed during this visit: yes, but has since been removed by the nurse Reason for continuing: Not indwelling catheter Insertion date: 01/22/18 Insertion time: 14:18 Removal date: 01/22/18 Removal time: 14:18 Results - Labs CBC & Chem 7: 01/25/18 03:45 01/25/18 03:45 Laboratory Results - last 24 hr 01/24/18 01/25/18 01/25/18 14:30 03:45 03:45 WBC 6.2 RBC 3.85 L Hgb 11.4 L Hct 35.3 MCV 91.8 MCH 29.5 MCHC 32.2 RDW 15.4 Plt Count 223 MPV 8.2 Neut % (Auto) 56.8 Lymph % (Auto) 31.8 [place] % (Auto) 7.5 Eos % (Auto) 3.4 Baso % (Auto) 0.5 Neut # (Auto) 3.5 Lymph # (Auto) 2.0 [place] # (Auto) 0.5 Eos # (Auto) 0.2 Baso # (Auto) 0.0 WBC Differential . Differential Comment Auto diff final Sodium 146 H 143 Potassium 4.1 D 4.5 Chloride 115 H 114 H Carbon Dioxide 23.9 22.1 Anion Gap 7 7 BUN 21 H 22 H Creatinine 1.75 H 1.81 H Estimated GFR 28 L 27 L Random Glucose 91 82 Calcium 8.3 L 8.1 L Total Bilirubin 0.3 AST 14 L ALT 12 Alkaline Phosphatase 54 Total Protein 6.0 L D Albumin 2.5 L Microbiology 01/22/18 14:20 Blood - Peripheral Aerobic Blood Culture - Preliminary No growth in 3 days 01/22/18 14:20 Blood - Peripheral Anaerobic Blood Culture - Preliminary No growth in 3 days 01/22/18 14:10 Blood - Peripheral Aerobic Blood Culture - Preliminary No growth in 3 days 01/22/18 14:10 Blood - Peripheral Anaerobic Blood Culture - Preliminary No growth in 3 days - Procedures None Assessment and Plan - Assessment (1) Hypertensive urgency Code(s): I16.0 - Hypertensive urgency Status: Acute (2) Hyperkalemia Code(s): E87.5 - Hyperkalemia Status: Acute (3) Weakness Code(s): R53.1 - Weakness Status: Acute (4) Encephalopathy, hypertensive Code(s): I67.4 - Hypertensive encephalopathy Status: Acute - Plan 77-year-old female admitted secondary to altered mental status, acute kidney injury, hyperkalemia, and hypertensive emergency/urgency. Hypertensive urgency- improved Possible hypertensive emergency Start amlodipine- better readings As needed clonidine Follow blood pressures possibly overmedicated Metabolic encephalopathy versus hypertensive encephalopathy ? Drug induced - on chronic pain meds Lethargic on admission - MS improved MS improved this am- awake and interactive and able to give history Seroquel continued REstart her Cymbalta tomorrow Restoril discontinued for now Slemp decreased from 10 mg to 5 mg for now- patient states she takes 10 mg Check thyroid panel- good Follow blood sugars suspect patient getting overmedicated as OP Acute kidney injury with underlying CKD Dehydration versus primary renal disease Monitor to ensure no progressive renal failure - states she is ff by a Post [facility] as OP Avoid nephrotoxins Hyperkalemia- improved Could be related to renal failure Hypothyroidism Repeat evaluation levels as above Continue levothyroxine Hyperlipidemia Continue present treatment Follow as an outpatient COPD No exacerbation Continue baseline treatments on Prednisone - will confirm if she is on this chronically DVT prophylaxis SCDs Lovenox 30 mg SQ daily GEt PT/OT eval - per patient uses a cane/walker at home Out of bed to cahir for all meals seen with sisted at bedside this pm- see pain management- Sami Swift PCP- Dr[facility]Watry Cervantes [facility] home today with home heatlh care OP ff up with Dr. Barnett
== END 2018-01-25 18:00 | disposition home health service (06) ==
LOC: NEDA 13:58 → NEPC 13:58 → N04 18:26
PROVIDERS: ADMIT Internal Medicine; ATTEND Internal Medicine